=== PATIENT | male | born 1965 | race Caucasian/White ===

== ENCOUNTER → 2018-01-31 | Outpatient (CLI) | payer OTHER ==
[2018-01-31 12:51] LABS: BASO % 0.4 %; BASO ABS # 0.02 K/uL (0-0.2); EOS % 1.6 %; EOS ABS # 0.09 K/uL (0-0.5); HEMATOCRIT 44.3 % (42-52); HEMOGLOBIN 15.3 g/dL (14.0-18.0); IG# 0.01 K/uL (0.00-0.02); LYMPH ABS # 1.46 K/uL (1.2-3.4); MEAN CELL VOLUME 94.7 fL (80-100); MEAN CORPUSCULAR HEMOGLOBIN 32.7 pg (25-34); MEAN CORPUSCULAR HGB CONC 34.5 g/dl (32-36); MONO % 6.8 %; MONO ABS # 0.38 K/uL (0.11-0.59); NEUT ABS # 3.66 K/uL (1.4-6.5); PLATELET COUNT 192 K/uL (130-400); RED CELL DISTRIBUTION WIDTH CV 12.8 % (11.5-14.5); RED CELL DISTRIBUTION WIDTH SD 44.1 fL (36.4-46.3); WHITE BLOOD COUNT 5.62 K/uL (4.8-10.8)
[2018-01-31 13:09] LABS: ALBUMIN 3.8 gm/dl (3.4-5.0); ALT/SGPT 19 U/L (12-78); AST/SGOT 9 U/L (15-37); BLOOD UREA NITROGEN 8 mg/dl (7-18); CALCIUM 9.4 mg/dl (8.5-10.1); CARBON DIOXIDE 28 mmol/L (21-32); CHOLESTEROL 181 mg/dl (0-200); CREATININE 0.73 mg/dl (0.60-1.40); GLUCOSE 101 mg/dl (70-99); POTASSIUM 3.9 mmol/L (3.5-5.1); SODIUM 139 mmol/L (136-145)
[2018-01-31 13:19] LABS: ALKALINE PHOSPHATASE 172 U/L (45-117); LDL CHOLESTEROL CALCULATED 94 mg/dl; TOTAL PROTEIN 7.2 gm/dl (6.4-8.2)
== END | disposition home or self-care (01) ==
LOC: C.LABBFT 10:14
PROVIDERS: ATTEND Internal Medicine
DX: E78.5 Hyperlipidemia, unspecified (principal); F79 Unspecified intellectual disabilities; E55.9 Vitamin D deficiency, unspecified; Z12.5 Encounter for screening for malignant neoplasm of prostate

== ENCOUNTER → 2018-06-06 | Outpatient (CLI) | payer OTHER ==
[2018-06-07 06:29] LABS: HEMOGLOBIN A1C 5.5 % (4.5-5.6)
== END | disposition home or self-care (01) ==
LOC: C.LABBFT 12:16
PROVIDERS: ATTEND Internal Medicine
DX: E55.9 Vitamin D deficiency, unspecified (principal); R73.09 Other abnormal glucose

== ENCOUNTER 2022-09-18 11:14 | Inpatient (IN) ==
[2022-09-18] MEDS ORDERED: SODIUM CHLORIDE 0.9% 1000ML 1,000 ML IV ONE (11:21)
--- NOTE | 2022-09-18 11:42 | Emergency Department Note ---
Impression & Plan Sepsis, UTI (urinary tract infection), Elevated lactic acid level, Leukocytosis ED Provider Note NAME: MOR HAM AGE: 57 SEX: M ARRIVES VIA: Ambulance INFORMANT: Patient ED PROVIDER(S): Royal Brown MD CHIEF COMPLAINT: Dried blood on bedsheet, ?UTI. PLAN: Disposition: Admit MEDICAL DECISION MAKING: The patient is a pleasant 57-year-old gentleman with a past medical history of intellectual delay, hyperlipidemia who presents to the emergency department via EMS and then accompanied by family for evaluation of dried blood that they discovered on the sheets this morning where they did report he had moved his bowels as well and this is brown. They do report that this morning his urine did smell foul and wonder if he has a UTI. Otherwise, prior to today he has been in his normal state of health and they deny additional concerns On arrival the patient is no acute distress, afebrile with blood pressure 80s/60s and heart in the 100s and vital signs otherwise stable. Patient's abdomen is benign. He does have mildly irritated external hemorrhoid that is nonthrombosed and no active bleeding. Per RN upon performing rectal temperature there was no melena or gross blood obtained. EKG without overt acute ischemia. Chest x-ray without overt cardiopulmonary process and most likely atelectasis. WBC 14.8K with neutrophil predominance and left shift. H/H and platelets within normal limits. Chemistry without metabolic acidosis though lactic acid initially 4.5. Total bilirubin 1.5, nonspecific and alk phos only 160. AST is 65, nonspecific and ALT within normal limits. Lipase is not elevated. Electrolytes without significant abnormality. Procalcitonin is 140 consistent with suspicion for sepsis. UA is suspicious for infection with 3+ bacteria. COVID-19, influenza and RSV PCR's were negative. CT of the abdomen pelvis de monstrates evidence consistent with cystitis without CT evidence of upper involvement. The patient was initially treated with 30 cc/kg IV fluid hydration given suspicion of sepsis as well as empiric ceftriaxone. Zosyn was added additionally given elevated lactic acid and procalcitonin. Following IV fluid hydration the patient's blood pressures did remain stable with maps 65-75. However, Levophed was ordered to the bedside out of caution should his MAPs drift down. Case was discussed with Dr. Sutton, [facility] hospitalist, who will evaluate the patient for admission. Triage Nursing notes reviewed and agree them. Prior medical records reviewed Vital Signs: reviewed and remarkable for tachycardia, hypotnesion. Differential diagnosis: Diverticulosis, AVM, coagulopathy, colitis, inflammatory bowel disease, malign alcides, Keli-Hines tear, esophagitis, peptic ulcer disease, variceal bleed, gastritis, epistaxis, fissure, hemorrhoids, as well as other pathologies. ER treatment provided: See below. Diagnostics interpreted by me: ECG: Sinus tachycardia, 120 bpm, no ectopy, no overt ST elevation or depression, QTC 452, QRS 92. Cardiac Monitoring: An order for continuous cardiac monitoring was placed and demonstrated sinus tachycardia, 120 bpm, no ectopy. Laboratory studies: See below Imaging studies: See below Consultation(s): Case was discussed with Dr. Sutton, [facility] hospitalist, who will evaluate the patient for admission. HPI: The patient is a pleasant 57-year-old gentleman with a past medical history of intellectual delay, hyperlipidemia who presents to the emergency department via EMS and then accompanied by family for evaluation of dried blood that they discovered on the sheets this morning where they did report he had moved his bowels as well and this is brown. Prior to today he has been in his normal state of health and denies any concerns particularly. They do report that this morning his urine did smell foul and wonder if he has a UTI. ROS: See above HPI for pertinent positives & negatives. A total of 10 systems reviewed and were otherwise negative. VITALS:See Below PHYSICAL EXAMINATION: GENERAL: Awake, alert, fatigued-appearing, in no distress HENT: Normocephalic, atraumatic. Oropharynx with dry mucous membranes and otherwise unremarkable. EYES: Normal conjunctiva. Sclera non-icteric. NECK: Supple. No nuchal rigidity. FROM. No JVD. RESPIRATORY: Clear to auscultation. CARDIAC: Tachycardic rate, normal rhythm. Extremities warm and well perfused. Pulses equal. ABDOMEN: Soft, non-distended. No tenderness to palpation. No rebound or guarding. No masses. RECTAL: Mildly irritated external hemorrhoid that is nonthrombosed and no active bleeding. Per RN upon performing rectal temperature there was no melena or gross blood obtained. MUSCULOSKELETAL: Chest examination reveals no tenderness. The back is symmetrical on inspection without obvious abnormality. There is no CVA tenderness to palpation. No joint edema. LOWER EXTREMITIES: Calves are equal size bilaterally and non-tender. No edema. No discoloration. NEURO: No focal sensory or motor deficits noted. Nonverbal at patient's base line the setting of developmental delay. Moving all extremities equally. SKIN: No rash or jaundice noted. ED COURSE: Critical Care: I have personally spent greater than 75 minutes of critical care time in the direct management of this patient. This includes bedside care, interpretation of diagnostic studies, and testing, discussion with consultants, patient, and family members, and other required patient management activities. This 75 minutes is in excess of all separately billable procedures. Royal Brown MD Past Med/Surg History Medical History Cognitive developmental delay Hyperlipidemia Surgical History No pertinent past surgical history Family History Father Aneurysm Brother Colon cancer Family/Other Hypertension Aneurysm Denies family history of Prostate cancer Social History Smoking Status: Unknown if ever smoked Second Hand Exposure: No; Hx Substance Use: No Preferred Language: Polish Visual Impairment: No Limitations Hearing Ability: Normal Bilingual Account Manager Required: No Beliefs That Will Affect Care: None marital status: single Current Living Situation: Family Current Living Situation Comment: lives with mother and brothers current occupational status: unemployed Feels Safe at Home: Yes Dental Care, Regularly: No Physical Activity Frequency: Does not Exercise Assistive Devices: None Allergies Allergies Allergy/AdvReac Type Severity Reaction Status Date / Time Penicillins Allergy Rash Verified 09/18/22 14:04 Home Meds Home Medications Medication Instructions Recorded Confirmed No Known Home Medications 09/18/22 09/18/22 Results & Data (ED) Vital Signs Vital Signs - 24 hr 09/18/22 11:39 09/18/22 11:39 09/18/22 11:39 Temperature 38.6 C H 38.6 C H Temperature Source Rectal Oral Pulse Rate 117 H 117 H Pulse Rate [Apical] 116 H Pulse Rate from SpO2 Sensor Respiratory Rate 19 19 19 Respiratory Depth Normal Respiratory Pattern Regular Blood Pressure 84/50 L Blood Pressure [Left Arm] 84/50 L Blood Pressure Mean 61 Blood Pressure Mean [Left Arm] 61 Pulse Oximetry 99 99 99 Oxygen Delivery Method Room Air Room Air Room Air Sepsis Recent Fever Within 48 Hours Yes Sepsis New/Unexplained Change in Mental Status No Sepsis Action Taken by Nursing Physician Notified 09/18/22 13:01 09/18/22 11:32 09/18/22 11:40 Temperature Temperature Source Pulse Rate 117 H 113 H Pulse Rate [Apical] 114 H Pulse Rate from SpO2 Sensor Respiratory Rate 18 20 18 Respiratory Depth Respiratory Pattern Blood Pressure Blood Pressure [Left Arm] 111/71 Blood Pressure Mean Blood Pressure Mean [Left Arm] 84 Pulse Oximetry 94 Oxygen Delivery Method Sepsis Recent Fever Within 48 Hours Sepsis New/Unexplained Change in Mental Status Sepsis Action Taken by Nursing 09/18/22 11:50 09/18/22 12:00 09/18/22 12:00 Temperature Temperature Source Pulse Rate 116 H 119 H Pulse Rate [Apical] Pulse Rate from SpO2 Sensor Respiratory Rate 21 21 Respiratory Depth Respiratory Pattern Blood Pressure 115/55 L Blood Pressure [Left Arm] Blood Pressure Mean 75 Blood Pressure Mean [Left Arm] Pulse Oximetry Oxygen Delivery Method Sepsis Recent Fever Within 48 Hours Sepsis New/Unexplained Change in Mental Status Sepsis Action Taken by Nursing 09/18/22 12:10 09/18/22 12:20 09/18/22 12:30 Temperature Temperature Source Pulse Rate 117 H 122 H 117 H Pulse Rate [Apical] Pulse Rate from SpO2 Sensor Respiratory Rate 18 18 20 Respiratory Depth Respiratory Pattern Blood Pressure Blood Pressure [Left Arm] Blood Pressure Mean Blood Pressure Mean [Left Arm] Pulse Oximetry Oxygen Delivery Method Sepsis Recent Fever Within 48 Hours Sepsis New/Unexplained Change in Mental Status Sepsis Action Taken by Nursing 09/18/22 12:40 09/18/22 12:50 09/18/22 13:00 Temperature Temperature Source Pulse Rate 113 H 113 H Pulse Rate [Apical] Pulse Rate from SpO2 Sensor 113 H 113 H Respiratory Rate 20 17 Respiratory Depth Respiratory Pattern Blood Pressure 111/71 Blood Pressure [Left Arm] Blood Pressure Mean 84 Blood Pressure Mean [Left Arm] Pulse Oximetry 95 93 Oxygen Delivery Method Sepsis Recent Fever Within 48 Hours Sepsis New/Unexplained Change in Mental Status Sepsis Action Taken by Nursing 09/18/22 13:00 09/18/22 13:28 09/18/22 13:28 Temperature Temperature Source Pulse Rate 112 H Pulse Rate [Apical] Pulse Rate from SpO2 Sensor 115 H 114 H Respiratory Rate 21 Respiratory Depth Respiratory Pattern Blood Pressure 91/60 L Blood Pressure [Left Arm] Blood Pressure Mean 70 Blood Pressure Mean [Left Arm] Pulse Oximetry 91 92 Oxygen Delivery Method Sepsis Recent Fever Within 48 Hours Sepsis New/Unexplained Change in Mental Status Sepsis Action Taken by Nursing 09/18/22 13:30 09/18/22 13:40 09/18/22 13:49 Temperature Temperature Source Pulse Rate 114 H 113 H 114 H Pulse Rate [Apical] Pulse Rate from SpO2 Sensor 114 H 113 H 114 H Respiratory Rate 14 14 16 Respiratory Depth Respiratory Pattern Blood Pressure Blood Pressure [Left Arm] Blood Pressure Mean Blood Pressure Mean [Left Arm] Pulse Oximetry 90 85 L 93 Oxygen Delivery Method Sepsis Recent Fever Within 48 Hours Sepsis New/Unexplained Change in Mental Status Sepsis Action Taken by Nursing 09/18/22 13:49 09/18/22 13:50 Temperature Temperature Source Pulse Rate 113 H Pulse Rate [Apical] Pulse Rate from SpO2 Sensor 113 H Respiratory Rate 18 Respiratory Depth Respiratory Pattern Blood Pressure 85/62 L Blood Pressure [Left Arm] Blood Pressure Mean 69 Blood Pressure Mean [Left Arm] Pulse Oximetry 92 Oxygen Delivery Method Sepsis Recent Fever Within 48 Hours Sepsis New/Unexplained Change in Mental Status Sepsis Action Taken by Nursing Laboratory Data Attestation: I reviewed the patient's lab results. Result diagrams: 09/18/22 11:34 09/18/22 12:40 Lab Results 09/18/22 09/18/22 09/18/22 Range/Units 11:34 11:34 11:34 WBC 14.89 H (4.8-10.8) K/ul RBC 4.28 L (4.63-6.08) M/uL Hgb 14.2 (14.0-18.0) g/dl Hct 42.2 (40.1-51.0) % MCV 98.6 (80.0-100.0) fL MCH 33.2 (25.0-34.0) pg MCHC 33.6 (32.0-36.0) g/dL RDW Std Deviation 44.0 (36.4-46.3) fL RDW Coeff of Francisco 12.2 (11.5-14.5) % Plt Count 148 (130-400) K/uL MPV 10.2 (9.4-12.4) fL Immature Gran % (Auto) 1.1 % Neut % (Auto) 95.3 % Lymph % (Auto) 1.1 % Stark % (Auto) 2.1 % Eos % (Auto) 0.1 % Baso % (Auto) 0.3 % Neut # (Auto) 14.19 H (1.4-6.5) K/uL Lymph # (Auto) 0.17 L (1.2-3.4) K/uL Stark # (Auto) 0.32 (0.24-0.82) K/uL Eos # (Auto) 0.01 (0-0.50) K/uL Baso # (Auto) 0.04 (0-0.2) K/uL Immature Gran # (Auto) 0.16 H (0.00-0.02) K/uL Toxic Vacuolation 1+ PT (9.0-12.0) Seconds INR (0.9-1.1) Sodium 141 (136-145) mmol/L Potassium TNP Chloride 107 (98-107) mmol/L Carbon Dioxide 26 (21-32) mmol/L Anion Gap 8 (3-11) BUN 18 (6-23) mg/dl Creatinine 1.32 (0.6-1.4) mg/dl Est Cr Clr Drug Dosing 62.2 ml/min Est GFR ( Amer) 68.0 ml/min Est GFR (Non-Af Amer) 58.6 ml/min BUN/Creatinine Ratio 13.6 (10-20) Glucose 194 H (70-99(Fasting)) mg/dl Estimat Average Glucose mg/dl Hemoglobin A1c (4.5-5.6) % Lactate (0.4-2.0) mmol/L Calcium 9.1 (8.5-10.1) mg/dl Total Bilirubin 1.5 H (0.2-1.0) mg/dl AST TNP ALT 49 (7-52) U/L Alkaline Phosphatase 161 H (34-104) U/L Total Protein 6.1 (6.0-8.3) gm/dl Albumin 3.6 (3.4-5.0) gm/dl Globulin 2.5 (2.5-4.0) gm/dl Albumin/Globulin Ratio 1.4 (0.9-2) Lipase 15 (11-82) U/L Procalcitonin (0-0.5) ng/ml Urine Color Yellow Urine Appearance Cloudy A (Clear) Urine pH 5.5 (4.5-7.5) Ur Specific [place] 1.012 (1.000-1.030) Urine Protein Negative (Negative) Urine Glucose (UA) Negative (Negative) Urine Ketones Negative (Negative) Urine Blood 2+ H (Negative) Urine Nitrite Negative (Negative) Urine Bilirubin Negative (Negative) Urine Urobilinogen Negative (Negative) Ur Leukocyte Esterase 1+ H (Negative) Urine WBC (Auto) 1-5 (0-5) /hpf Urine RBC (Auto) 10-30 H (0-4) /hpf U Hyaline Cast (Auto) 1-5 (0-5) /lpf U Epithel Cells (Auto) 10-20 H (0-5) /lpf Urine Bacteria (Auto) 3+ H (Negative) SARS-CoV-2 (PCR) (Negative) Influenza Type A (PCR) (Neg) Influenza Type B (PCR) (Neg) RSV (RT-PCR) (Neg) 09/18/22 09/18/22 09/18/22 Range/Units 11:34 12:40 12:40 WBC (4.8-10.8) K/ul RBC (4.63-6.08) M/uL Hgb (14.0-18.0) g/dl Hct (40.1-51.0) % MCV (80.0-100.0) fL MCH (25.0-34.0) pg MCHC (32.0-36.0) g/dL RDW Std Deviation (36.4-46.3) fL RDW Coeff of Francisco (11.5-14.5) % Plt Count (130-400) K/uL MPV (9.4-12.4) fL Immature Gran % (Auto) % Neut % (Auto) % Lymph % (Auto) % Stark % (Auto) % Eos % (Auto) % Baso % (Auto) % Neut # (Auto) (1.4-6.5) K/uL Lymph # (Auto) (1.2-3.4) K/uL Stark # (Auto) (0.24-0.82) K/uL Eos # (Auto) (0-0.50) K/uL Baso # (Auto) (0-0.2) K/uL Immature Gran # (Auto) (0.00-0.02) K/uL Toxic Vacuolation PT 11.5 (9.0-12.0) Seconds INR 1.1 (0.9-1.1) Sodium (136-145) mmol/L Potassium Chloride (98-107) mmol/L Carbon Dioxide (21-32) mmol/L Anion Gap (3-11) BUN (6-23) mg/dl Creatinine (0.6-1.4) mg/dl Est Cr Clr Drug Dosing ml/min Est GFR ( Amer) ml/min Est GFR (Non-Af Amer) ml/min BUN/Creatinine Ratio (10-20) Glucose (70-99(Fasting)) mg/dl Estimat Average Glucose 128 mg/dl Hemoglobin A1c 6.1 H (4.5-5.6) % Lactate (0.4-2.0) mmol/L Calcium (8.5-10.1) mg/dl Total Bilirubin (0.2-1.0) mg/dl AST ALT (7-52) U/L Alkaline Phosphatase (34-104) U/L Total Protein (6.0-8.3) gm/dl Albumin (3.4-5.0) gm/dl Globulin (2.5-4.0) gm/dl Albumin/Globulin Ratio (0.9-2) Lipase (11-82) U/L Procalcitonin 140.53 H (0-0.5) ng/ml Urine Color Urine Appearance (Clear) Urine pH (4.5-7.5) Ur Specific [place] (1.000-1.030) Urine Protein (Negative) Urine Glucose (UA) (Negative) Urine Ketones (Negative) Urine Blood (Negative) Urine Nitrite (Negative) Urine Bilirubin (Negative) Urine Urobilinogen (Negative) Ur Leukocyte Esterase (Negative) Urine WBC (Auto) (0-5) /hpf Urine RBC (Auto) (0-4) /hpf U Hyaline Cast (Auto) (0-5) /lpf U Epithel Cells (Auto) (0-5) /lpf Urine Bacteria (Auto) (Negative) SARS-CoV-2 (PCR) (Negative) Influenza Type A (PCR) (Neg) Influenza Type B (PCR) (Neg) RSV (RT-PCR) (Neg) 09/18/22 09/18/22 09/18/22 Range/Units 12:40 12:40 12:51 WBC (4.8-10.8) K/ul RBC (4.63-6.08) M/uL Hgb (14.0-18.0) g/dl Hct (40.1-51.0) % MCV (80.0-100.0) fL MCH (25.0-34.0) pg MCHC (32.0-36.0) g/dL RDW Std Deviation (36.4-46.3) fL RDW Coeff of Francisco (11.5-14.5) % Plt Count (130-400) K/uL MPV (9.4-12.4) fL Immature Gran % (Auto) % Neut % (Auto) % Lymph % (Auto) % Stark % (Auto) % Eos % (Auto) % Baso % (Auto) % Neut # (Auto) (1.4-6.5) K/uL Lymph # (Auto) (1.2-3.4) K/uL Stark # (Auto) (0.24-0.82) K/uL Eos # (Auto) (0-0.50) K/uL Baso # (Auto) (0-0.2) K/uL Immature Gran # (Auto) (0.00-0.02) K/uL Toxic Vacuolation PT (9.0-12.0) Seconds INR (0.9-1.1) Sodium (136-145) mmol/L Potassium 4.0 Chloride (98-107) mmol/L Carbon Dioxide (21-32) mmol/L Anion Gap (3-11) BUN (6-23) mg/dl Creatinine (0.6-1.4) mg/dl Est Cr Clr Drug Dosing ml/min Est GFR ( Amer) ml/min Est GFR (Non-Af Amer) ml/min BUN/Creatinine Ratio (10-20) Glucose (70-99(Fasting)) mg/dl Estimat Average Glucose mg/dl Hemoglobin A1c (4.5-5.6) % Lactate 4.5 H* (0.4-2.0) mmol/L Calcium (8.5-10.1) mg/dl Total Bilirubin (0.2-1.0) mg/dl AST 65 H ALT (7-52) U/L Alkaline Phosphatase (34-104) U/L Total Protein (6.0-8.3) gm/dl Albumin (3.4-5.0) gm/dl Globulin (2.5-4.0) gm/dl Albumin/Globulin Ratio (0.9-2) Lipase (11-82) U/L Procalcitonin (0-0.5) ng/ml Urine Color Urine Appearance (Clear) Urine pH (4.5-7.5) Ur Specific [place] (1.000-1.030) Urine Protein (Negative) Urine Glucose (UA) (Negative) Urine Ketones (Negative) Urine Blood (Negative) Urine Nitrite (Negative) Urine Bilirubin (Negative) Urine Urobilinogen (Negative) Ur Leukocyte Esterase (Negative) Urine WBC (Auto) (0-5) /hpf Urine RBC (Auto) (0-4) /hpf U Hyaline Cast (Auto) (0-5) /lpf U Epithel Cells (Auto) (0-5) /lpf Urine Bacteria (Auto) (Negative) SARS-CoV-2 (PCR) NEGATIVE (Negative) Influenza Type A (PCR) Negative (Neg) Influenza Type B (PCR) Negative (Neg) RSV (RT-PCR) Negative (Neg) Administered Medications Heparin Sodium (Porcine) (Heparin Sod 5,000 Unit/0.5 Ml Vial) 5,000 units SQ Q12 [facility] Stop: 10/18/22 20:59 Last Admin: 09/18/22 20:40 Dose: 5,000 units Documented By: ISAAC Cefepime HCl 2,000 mg/ Syringe 20 mls @ 5 mls/min IV Q8H [facility]; Protocol Stop: 09/20/22 22:59 Last Admin: 09/18/22 23:52 Dose: 5 mls/min Documented By: ISAAC Potassium Chloride/Sodium Chloride (Normal Saline W/20 Meq Kcl) 20 meq in 1,000 mls @ 120 mls/hr IV .Q8H20M [facility] Stop: 10/18/22 16:27 Last Infusion: 09/18/22 23:00 Dose: 120 mls/hr Documented By: Infusion: 09/18/22 22:00 Dose: 0 mls/hr Documented By: Admin: 09/18/22 17:26 Dose: 120 mls/hr Documented By: IFRAH Insulin Aspart (Insulin Aspart Per Unit) 0 units SC ACHS RAZ Stop: 10/18/22 16:29 Last Admin: 09/18/22 20:44 Dose: 2 units Documented By: ISAAC Co-signed By: NORRIS Admin: 09/18/22 17:40 Dose: Not Given Documented By: IFRAH Discontinued Medications Sodium Chloride (Nss 1000ml) 1,000 mls @ 999 mls/hr IV .Q1H1M ONE Stop: 09/18/22 12:21 Last Admin: 09/18/22 12:38 Dose: Not Given Documented By: TONE Sodium Chloride (Nss 1000ml) 500 mls @ 999 mls/hr IV .Q31M RAZ Stop: 09/18/22 13:00 Last Infusion: 09/18/22 13:09 Dose: 0 mls/hr Documented By: Admin: 09/18/22 12:28 Dose: 999 mls/hr Documented By: TONE Sodium Chloride (Nss 1000ml) 1,000 mls @ 999 mls/hr IV .Q1H1M RAZ Stop: 09/18/22 14:30 Last Infusion: 09/18/22 16:34 Dose: 0 mls/hr Documented By: Admin: 09/18/22 14:26 Dose: 999 mls/hr Documented By: Infusion: 09/18/22 13:33 Dose: 0 mls/hr Documented By: Admin: 09/18/22 12:28 Dose: 999 mls/hr Documented By: TONE Acetaminophen (Ofirmev) 1,000 mg in 100 mls @ 400 mls/hr IV NOW STA Stop: 09/18/22 12:33 Last Infusion: 09/18/22 12:51 Dose: 0 mls/hr Documented By: Admin: 09/18/22 12:28 Dose: 400 mls/hr Documented By: KT Ceftriaxone Sodium (Rocephin) 2,000 mg in 70 mls @ 140 mls/hr IV NOW STA Stop: 09/18/22 12:48 Last Infusion: 09/18/22 13:08 Dose: 0 mls/hr Documented By: Admin: 09/18/22 12:37 Dose: 140 mls/hr Documented By: KT Piperacillin Sod/Tazobactam Sod (Zosyn) 4.5 gm in 120 mls @ 240 mls/hr IV NOW ONE Stop: 09/18/22 14:13 Last Admin: 09/18/22 16:33 Dose: Not Given Documented By: IFRAH Norepinephrine Bitartrate (Levophed/D5w) 4 mg in 250 mls @ 15.375 mls/hr IV .[id number] RAZ; Protocol Stop: 10/18/22 13:59 Last Admin: 09/18/22 16:32 Dose: Not Given Documented By: IFRAH Metronidazole (Flagyl) 500 mg in 100 mls @ 100 mls/hr IV Q8H RAZ Stop: 09/20/22 14:14 Last Admin: 09/18/22 16:34 Dose: Not Given Documented By: IFRAH Cefepime HCl 2,000 mg/ Syringe 20 mls @ 5 mls/min IV 1500 ONE; Protocol Stop: 09/18/22 15:03 Last Admin: 09/18/22 14:48 Dose: 5 mls/min Documented By: TONE Metronidazole (Flagyl) 500 mg in 100 mls @ 100 mls/hr IV 1500 ONE Stop: 09/18/22 15:59 Last Infusion: 09/18/22 15:43 Dose: 0 mls/hr Documented By: Admin: 09/18/22 14:47 Dose: 100 mls/hr Documented By: TONE Lactated Ringer's (Lr) 1,000 mls @ 999 mls/hr IV .Q1H1M ONE Stop: 09/18/22 22:46 Last Infusion: 09/18/22 23:10 Dose: 0 mls/hr Documented By: Admin: 09/18/22 21:58 Dose: 999 mls/hr Documented By: ISAAC Ioversol (Optiray 350 100ml) 88 ml IV ONCE ONE Stop: 09/18/22 13:19 Last Admin: 09/18/22 13:19 Dose: 88 ml Documented By: RODRIGUEZ Lidocaine HCl (Lidocaine 2% Jelly 5 Ml Tube) Confirm Administered Dose 5 ml EXT .STK-MED ONE Stop: 09/18/22 15:49 Last Admin: 09/18/22 16:35 Dose: 5 ml Documented By: IFRAH Miscellaneous (Stat Iv Infusion Titration Per Protocol) 1 each N/A NOW STA; Protocol Stop: 09/18/22 13:53 Last Admin: 09/18/22 16:31 Dose: Not Given Documented By: LDS Imaging Data Radiologist's Impression: Abdomen/Pelvis CT 09/18/22 12:16 CT abd pelvis IV con only CLINICAL HISTORY: uti, hematuria TECHNIQUE: Helical axial images of the abdomen and pelvis were obtained and displayed. Automated dose lowering techniques and/or adjustment according to patient size were utilized for this exam. This exam was performed with intravenous contrast. CT DOSE: 1134.16 mGycm COMPARISON: FINDINGS: Lower chest: Bibasilar atelectasis versus scarring is seen. Liver: Unremarkable. No focal lesions are seen. Gallbladder and biliary tree: Cholelithiasis is seen without evidence of cholecystitis. No intra- or extrahepatic biliary ductal dilation. Pancreas: Fatty replacement of the pancreas is seen. Spleen: Unremarkable. Adrenals: Unremarkable. Kidneys and ureters: Perinephric stranding is noted bilaterally. No evidence of pyelonephritis. No hydronephrosis is seen. Bladder: Diffuse homogeneous wall thickening is seen. Reproductive organs: Prostatomegaly is seen. Bowel: Unremarkable appearance of the bowel. The appendix is normal. Lymph nodes Retroperitoneal: Subcentimeter lymph nodes are noted. Pelvic: Unremarkable. Mesenteric: Unremarkable. Peritoneum: Normal. Vessels: Unremarkable. Abdominal wall: Unremarkable. Bones: Degenerative changes in the visualized spine. IMPRESSION: Thickening of the bladder wall is seen compatible with history of UTI. No CT evidence of pyelonephritis. No urothelial mass is seen. ACT 112: Negative or not required by law. Electronically signed by: Eleazar Barrera M.D. 09/18/2022 1:36 PM Chest X-Ray 09/18/22 13:40 XR chest 1V portable HISTORY: fever COMPARISON: Abdomen and pelvis CT 09/18/2022. FINDINGS: Bibasilar linear densities consistent with subsegmental atelectasis. No pneumothorax. No pleural effusion is. There are low lung volumes. The cardiac silhouette is top normal in size. No evidence for pulmonary edema. Questionable small focal density within the periphery the right midlung zone is likely due to the overlapping rib/scapula. IMPRESSION: Low lung volumes with bibasilar linear densities likely representing subsegmental atelectasis. ACT 112: Negative or not required by law. Electronically signed by: Eliseo Steele M.D. 09/18/2022 2:21 PM Discharge Plan Visit Data Chief Complaint: Abdominal Pain Stated Complaint: AB PAIN, RECTAL BLEED ED Provider: Royal Brown Discharge Problem: Sepsis, UTI (urinary tract infection), Elevated lactic acid level, Leukocytosis Patient Disposition: Admitted As Inpatient Discharge Instructions Interventions: ED Discharge Assessment Last Done: 09/18/22 16:02
[2022-09-18 11:55] LABS: Hematocrit (blood only) 42.2 % (40.1-51.0); Hemoglobin 14.2 g/dl (14.0-18.0); Mean Corpuscular Hemoglobin 33.2 pg (25.0-34.0); Mean Corpuscular Hgb Conc 33.6 g/dL (32.0-36.0); Mean Corpuscular Volume 98.6 fL (80.0-100.0); Mean Platelet Volume 10.2 fL (9.4-12.4); Platelet Count 148 K/uL (130-400); RDW Coefficient of Variation 12.2 % (11.5-14.5); Red Blood Count 4.28 M/uL (4.63-6.08); White Blood Count 14.89 K/ul (4.8-10.8)
[2022-09-18 12:12] LABS: Appearance Urine Cloudy (Clear); Bacteria Urine Automated 3+ (Negative); Bilirubin Urine Negative (Negative); Blood Urine 2+ (Negative); Color Urine Yellow; Glucose Urine UA Negative (Negative); Ketones Urine Negative (Negative); Leukocyte Esterase Urine 1+ (Negative); Nitrite Urine Negative (Negative); Protein Urine Negative (Negative); Specific Gravity Urine 1.012 (1.000-1.030); Urobilinogen Urine Negative (Negative); pH Urine 5.5 (4.5-7.5)
[2022-09-18 12:14] LABS: Basophils # (auto) 0.04 K/uL (0-0.2); Basophils % (auto) 0.3 %; Eosinophils # (auto) 0.01 K/uL (0-0.50); Eosinophils % (auto) 0.1 %; Immature Granulocytes # (auto) 0.16 K/uL (0.00-0.02); Immature Granulocytes % (auto) 1.1 %; Lymphocytes # (auto) 0.17 K/uL (1.2-3.4); Lymphocytes % (auto) 1.1 %; Monocytes # (auto) 0.32 K/uL (0.24-0.82); Monocytes % (auto) 2.1 %; Neutrophils # (auto) 14.19 K/uL (1.4-6.5); Neutrophils % (auto) 95.3 %; Toxic Vacuolation 1+
[2022-09-18] MEDS ORDERED: cefTRIAXone SODIUM 2,000 MG/70 ML BAG IV STA (12:19)
[2022-09-18] MEDS ORDERED: ACETAMINOPHEN 1,000 MG/100 ML VIAL IV STA (12:19)
[2022-09-18 12:25] LABS: Alanine Aminotransferase 49 U/L (7-52); Albumin Globulin Ratio 1.4 (0.9-2); Albumin Level 3.6 gm/dl (3.4-5.0); Alkaline Phosphatase 161 U/L (34-104); Anion Gap 8 (3-11); BUN Creatinine Ratio 13.6 (10-20); Bilirubin,Total 1.5 mg/dl (0.2-1.0); Blood Urea Nitrogen 18 mg/dl (6-23); Calcium 9.1 mg/dl (8.5-10.1); Carbon Dioxide 26 mmol/L (21-32); Chloride 107 mmol/L (98-107); Creatinine Clr Calc Pharmacy 62.2 ml/min; Est GFR (Non-African American) 58.6 ml/min; Globulin 2.5 gm/dl (2.5-4.0); Glucose 194 mg/dl (70-99(Fasting)); Lipase 15 U/L (11-82); Sodium 141 mmol/L (136-145); Total Protein 6.1 gm/dl (6.0-8.3)
[2022-09-18] MEDS: SODIUM CHLORIDE 0.9% 1000ML 1,000 ML IV SCH ×2 (12:28→14:26)
[2022-09-18] MEDS ORDERED: SODIUM CHLORIDE 0.9% 1000ML 500 ML IV SCH (12:30)
[2022-09-18 13:10] LABS: INR 1.1 (0.9-1.1); Prothrombin Time 11.5 Seconds (9.0-12.0)
[2022-09-18] MEDS ORDERED: OPTIRAY 350 100ml IV ONE (13:18)
--- NOTE | 2022-09-18 13:37 | CT Scan Report ---
CT abd pelvis IV con only CLINICAL HISTORY: uti, hematuria TECHNIQUE: Helical axial images of the abdomen and pelvis were obtained and displayed. Automated dose lowering techniques and/or adjustment according to patient size were utilized for this exam. This e xam was performed with intravenous contrast. CT DOSE: 1134.16 mGycm COMPARISON: FINDINGS: Lower chest: Bibasilar atelectasis versus scarring is seen. Liver: Unremarkable. No focal lesions are seen. Gallbladder and biliary tree: Cholelithiasis is seen without evidence of cholecystitis. No intra- or extrahepatic biliary ductal dilation. Pancreas: Fatty replacement of the pancreas is seen. Spleen: Unremarkable. Adrenals: Unremarkable. Kidneys and ureters: Perinephric stranding is noted bilaterally. No evidence of pyelonephritis. No hy dronephrosis is seen. Bladder: Diffuse homogeneous wall thickening is seen. Reproductive organs: Prostatomegaly is seen. Bowel: Unremarkable appearance of the bowel. The appendix is normal. Lymph nodes Retroperitoneal: Subcentimeter lymph nodes are noted. Pelvic: Unremarkable. Mesenteric: Unremarkable. Peritoneum: Normal. Vessels: Unremarkable. Abdominal wall: Unremarkable. Bones: Degenerative changes in the visualized spine. IMPRESSION: Thickening of the bladder wall is seen compatible with history of UTI. No CT evidence of pyelonephrit is. No urothelial mass is seen. ACT 112: Negative or not required by law. Electronically signed by: Eleazar Barrera M.D. 09/18/2022 1:36 PM
[2022-09-18] MEDS ORDERED: PIPERACILLIN/TAZOBACTAM 4.5 GM/120 ML BAG IV ONE (13:44)
[2022-09-18] MEDS ORDERED: STAT IV Infusion **Titration per Protocol STA (13:52)
--- NOTE | 2022-09-18 13:56 | History & Physical Report ---
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 PCN allergy. I nitially with one dose of flagyl to cover anaerobe ?aspiration, CXR normal without hypoxia, discontinued 2/2 suspected urinary source Initially ordered norepinephrine for MAP less than 65, MAP improved and sustained greater than 70 with fluids and antibiotics. Norepinephrine deferred, PCU status. If pressures drop with MAP below 65 we will reorder and would require ICU admission Bilirubin elevated, AST 65, ALT 49? In setting of hypertension. Trended - CXR: Low lung volumes with bibasilar linear densities likely representing subsegmental atelectasis. 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 He lives at home with caregivers who also have cameras in the home to help monitor activity. Reportedly was in his usual state of health until 1 week ago when he developed increased urinary frequency, but did not express or indicate pain. He had been taking Azo and cranberry extract over the last week. Last night he was up at 3 AM to urinate and went to bed, his brother then found him around 8 in the following morning in bed with a small amount of blood on the sheet suspected of urinary origin, more sedated, and fatigued and was brought to the ER for evaluation. On ER evaluation he met sepsis criteria due to tachycardia, hypotension, leukocytosis with left shift and elevated lactate/PCT with normal bicarb. Patient did receive empiric ceftriaxone which was expanded to cefepime due to severity of illness. Patient was originally ordered Zosyn, this was not given as and discussed with patient's family he had had reactions and allergy to penicillin which I think involved a rash but were not sure if this involved airway or lip swelling. Unclear if patient could have aspirated and anaerobe coverage was initially ordered, chest x-ray was clear and Flagyl was subsequently deferred. Patient was also initially ordered norepinephrine, however deven to systolic greater than 100 with maps above 70 with fluid and antibiotic treatment and this was deferred. History is limited at bedside due to patient's underlying nonverbal status, collateral was collected from patient's family and brother at bedside. Primary Contact is patient's brother Antony. He notes that Renate also has some congenital spine deformity with chronic back pain, but otherwise has no medical problems. No histories of falls/trauma/concussion. No daily medications. Medical History: Reviewed Medications: Reviewed Surgical History: Reviewed Allergies: Reviewed Social History: No tobacco/alcohol/substance use Code Status: Full code, discussed with family Allergies Allergy/AdvReac Type Severity Reaction Status Date / Time Penicillins Allergy Rash Verified 09/18/22 14:04 Home Medications Medication Instructions Recorded Confirmed Type azithromycin 250 mg tablet See Rx Instructions PO .COMPLEX #6 09/14/21 Rx (Zithromax) tabs benzonatate 100 mg capsule 100 mg PO TID PRN cough #30 caps 09/14/21 Rx (Tessalon Perles) Past Med/Surg History Medical History Cognitive developmental delay Hyperlipidemia Surgical History No pertinent past surgical history Family History Father Aneurysm Brother Colon cancer Family/Other Hypertension Aneurysm Denies family history of Prostate cancer Social History Smoking Status: Never smoker Second Hand Exposure: No; Hx Alcohol Use: No Hx Substance Use: No Preferred Language: Fijian Visual Impairment: No Limitations Hearing Ability: Normal marital status: single Current Living Situation: Parent and Family Current Living Situation Comment: lives with mother and brothers current occupational status: unemployed Feels Safe at Home: Yes Dental Care, Regularly: No Physical Activity Frequency: Does not Exercise Review of Systems Review of Systems: All systems reviewed & are unremarkable except as noted in HPI & below Physical Exam Physical Exam: General: Awake, nonverbal. No acute distress/nontoxic appearing. HEENT: Atraumatic, normocephalic. Mucous membranes tacky/dry. Tracks with EOMs. Pulm: CTAB A&P. -wheezes, -rales, -rhonchi. Symmetrical chest rise. No increase in work of breathing. No respiratory distress. Cardiac: Regular, tachycardic, -mrg. Radial pulses intact and symmetrical. Abdominal: Does not grimace to abdominal palpation. Soft, nondistended Extremities: Warm, dry. Strength testing limited by engagement. Cap refill 1-2 seconds in the hallux bilaterally. Results & Data Results & Data ([facility]) Vital Signs (Past 12 Hours) Vital Signs Temp Pulse Pulse Resp BP BP Pulse Ox 09/18/22 13:01 114 H 18 111/71 94 09/18/22 11:39 117 H 19 99 09/18/22 11:39 38.6 C H 116 H 19 84/50 L 99 09/18/22 11:39 38.6 C H 117 H 19 84/50 L 99 O2 Del Method 09/18/22 13:01 09/18/22 11:39 Room Air 09/18/22 11:39 Room Air 09/18/22 11:39 Room Air Code Status & VTE Plan VTE Prophylaxis Plan VTE Prophylaxis will be ordered: Yes PG Care Time/CCT Total # of Minutes Spent Total Time Spent with Patient: Total time spent is greater than 50% in coordination of care (as documented) at patient's floor/unit and/or counseling patient: Coding Level of Care Code 39959 Initial Inpt Care Lvl 3 Diagnoses Sepsis A41.9 UTI (urinary tract infection) N39.0 Impaired fasting glucose R73.01 Hyperlipidemia E78.5
[2022-09-18] MEDS ORDERED: NOREPINEPHRINE/D5W 4 MG/250 ML PLCT IV SCH (14:00)
[2022-09-18 14:09] LABS: Influenza A virus by PCR Negative (Neg); Influenza B virus by PCR Negative (Neg); RSV by PCR Negative (Neg); SARS CoV2 RNA(COVID-19)Cepheid NEGATIVE (Negative)
[2022-09-18] MEDS ORDERED: metroNIDAZOLE 500 MG/100 ML BAG IV SCH (14:15)
--- NOTE | 2022-09-18 14:23 | XRay Report ---
XR chest 1V portable HISTORY: fever COMPARISON: Abdomen and pelvis CT 09/18/2022. FINDINGS: Bibasilar linear densities consistent with subsegmental atelectasis. No pneumothorax. No pl eural effusion is. There are low lung volumes. The cardiac silhouette is top normal in size. No evide nce for pulmonary edema. Questionable small focal density within the periphery the right midlung zone is likely due to the overlapping rib/scapula. IMPRESSION: Low lung volumes with bibasilar linear densities likely representing subsegmental atelectasis. ACT 112: Negative or not required by law. Electronically signed by: Eliseo Steele M.D. 09/18/2022 2:21 PM
[2022-09-18] MEDS ORDERED: CEFEPIME 2,000 MG in SYRINGE 0 ML IV ONE (15:00)
[2022-09-18] MEDS ORDERED: metroNIDAZOLE 500 MG/100 ML BAG IV ONE (15:00)
[2022-09-18] MEDS ORDERED: GLUCAGON FOR INJ 1 MG VIAL SQ PRN (15:19)
[2022-09-18] MEDS ORDERED: GLUCOSE 10 TAB/TUBE PO PRN (15:19)
[2022-09-18] MEDS ORDERED: DEXTROSE 50% 50 ML SYRINGE IV PRN (15:19)
[2022-09-18] MEDS ORDERED: CARBOHYDRATES FOR HYPOGLYCEMIA PO PRN (15:19)
[2022-09-18] MEDS ORDERED: GLUCOSE 40% GEL 15 GM TUBE PO PRN (15:19)
[2022-09-18] MEDS ORDERED: LIDOCAINE 2% JELLY 5 ML TUBE EXT ONE (15:48)
[2022-09-18] MEDS ORDERED: MAGNESIUM HYDROXIDE SUSP 30 ML UDC PO PRN (16:28)
[2022-09-18] MEDS ORDERED: ONDANSETRON INJ 2 MG/ML 2 ML VIAL IV PRN (16:28)
[2022-09-18] MEDS ORDERED: POLYETHYLENE (MIRALAX) 17 GM PACK PO PRN (16:28)
[2022-09-18] MEDS ORDERED: ACETAMINOPHEN 500 MG TAB PO PRN ×2 (17:02→21:47)
[2022-09-18] MEDS: NSS + 20MEQ KCL 20 MEQ/1,000 ML BAG IV SCH (17:26)
[2022-09-18] MEDS: INSULIN ASPART PER UNIT SC SCH ×2 (17:40→20:44)
[2022-09-18 17:58] LABS: Estimated Average Glucose 128 mg/dl; Hemoglobin A1C 6.1 % (4.5-5.6)
--- NOTE | 2022-09-18 18:25 | Electrocardiogram Report ---
Test Reason : Blood Pressure : / mmHG Vent. Rate : 120 BPM Atrial Rate : 120 BPM P-R Int : 154 ms QRS Dur : 092 ms QT Int : 320 ms P-R-T Axes : 056 011 050 degrees QTc Int : 452 ms Sinus tachycardia Possible Left atrial enlargement Atypical right bundle pattern, consider Brugada Borderline ECG No previous ECGs available Confirmed by Renato Elizabeth ([id number]) on 09/18/2022 6:25:34 PM Referred By: REFERRED SELF Confirmed By:Ruben Elizabeth
[2022-09-18] MEDS: HEPARIN SOD 5,000 UNIT/0.5 ML VIAL SQ SCH (20:40)
[2022-09-18] MEDS ORDERED: LACTATED RINGER'S 1,000 ML IV ONE (21:46)
[2022-09-18] MEDS ORDERED: ACETAMINOPHEN 1,000 MG/100 ML VIAL IV PRN (21:47)
[2022-09-18] MEDS: CEFEPIME 2,000 MG in SYRINGE 0 ML IV SCH (23:52)
[2022-09-19] MEDS: NSS + 20MEQ KCL 20 MEQ/1,000 ML BAG IV SCH ×3 (03:09→20:01)
[2022-09-19 06:38] LABS: Hematocrit (blood only) 35.4 % (40.1-51.0); Hemoglobin 12.3 g/dl (14.0-18.0); Mean Corpuscular Hemoglobin 33.3 pg (25.0-34.0); Mean Corpuscular Hgb Conc 34.7 g/dL (32.0-36.0); Mean Corpuscular Volume 95.9 fL (80.0-100.0); Mean Platelet Volume 10.1 fL (9.4-12.4); Platelet Count 133 K/uL (130-400); RDW Coefficient of Variation 12.6 % (11.5-14.5); RDW Standard Deviation 44.4 fL (36.4-46.3); Red Blood Count 3.69 M/uL (4.63-6.08); White Blood Count 19.68 K/ul (4.8-10.8)
[2022-09-19 06:45] LABS: Albumin Level 3.1 gm/dl (3.4-5.0); BUN Creatinine Ratio 19.3 (10-20); Basophils # (auto) 0.04 K/uL (0-0.2); Basophils % (auto) 0.2 %; Bilirubin Direct 0.4 mg/dl (0-0.2); Bilirubin,Total 1.2 mg/dl (0.2-1.0); Calcium 7.9 mg/dl (8.5-10.1); Creatinine Clr Calc Pharmacy 93.3 ml/min; Eosinophils # (auto) 0.15 K/uL (0-0.50); Eosinophils % (auto) 0.8 %; Immature Granulocytes # (auto) 0.78 K/uL (0.00-0.02); Lymphocytes # (auto) 0.48 K/uL (1.2-3.4); Lymphocytes % (auto) 2.4 %; Monocytes # (auto) 1.12 K/uL (0.24-0.82); Monocytes % (auto) 5.7 %; Neutrophils # (auto) 17.11 K/uL (1.4-6.5); Neutrophils % (auto) 86.9 %; Potassium 4.2 mmol/L (3.5-5.1); RBC Morphology Unremarkable; Total Protein 5.2 gm/dl (6.0-8.3)
[2022-09-19] MEDS: PANTOprazole 40 MG TAB PO SCH (07:34)
[2022-09-19] MEDS: CEFEPIME 2,000 MG in SYRINGE 0 ML IV SCH ×3 (07:34→23:48)
[2022-09-19] MEDS: HEPARIN SOD 5,000 UNIT/0.5 ML VIAL SQ SCH ×2 (07:34→20:02)
[2022-09-19] MEDS: INSULIN ASPART PER UNIT SC SCH ×4 (08:36→20:00)
--- NOTE | 2022-09-19 19:25 | Hospitalist Progress Note ---
Date of Service September 19, 2022 Assessment & Plan (1) Sepsis: Plan: Bernardino is a 57-year-old male with a 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 PCN allergy. I nitially with one dose of flagyl to cover anaerobe ?aspiration, CXR normal without hypoxia, discontinued 2/2 suspected urinary source Initially ordered norepinephrine for MAP less than 65, MAP improved and sustained greater than 70 with fluids and antibiotics. Norepinephrine deferred, PCU status. If pressures drop with MAP below 65 we will reorder and would require ICU admission Bilirubin elevated, AST 65, ALT 49? In setting of hypertension. Trended - CXR: Low lung volumes with bibasilar linear densities likely representing subsegmental atelectasis. 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 chronic back pain No other medical problems Patient's decision-maker and primary contact is his brother Antony At baseline will walk around the house, engage at approximately a fourth grade level, and is able to eat meals without difficulty/aspiration BSG Elevated BSG of 190 for admission, denies history of diabetes/antidiabetic medications SSI placed with goal [id number], A1c pending (2) UTI (urinary tract infection): (3) Impaired fasting glucose: (4) Hyperlipidemia: Admission and Anticipated Discharge Date Admission Date: September 18, 2022 Subjective pt non verbal pt also has underlyng incontinence as per brother Physical Exam Constitutional: pt non verbal Cardiovascular S1-S2 heard normally Lungs bilateral air entry decreased at bases Abdomen soft Extremity no edema Results & Data Results & Data ([facility]) Vital Signs (Past 12 Hours) Vital Signs Temp Pulse Resp BP Pulse Ox O2 Del Method 09/19/22 19:18 37.4 C 97 H 19 106/70 96 Room Air 09/19/22 15:22 37.8 C H 97 H 19 96/58 L 94 Room Air 09/19/22 12:02 36.9 C 101 H 18 100/65 97 Room Air 09/19/22 07:39 37.2 C 100 H 19 94/58 L 94 Room Air PG Care Time/CCT Total # of Minutes Spent Total Time Spent with Patient: Total time spent is greater than 50% in coordination of care (as documented) at patient's floor/unit and/or counseling patient: Coding Level of Care Code 88844 Subseq Hosp Care Lvl 2 Diagnoses Sepsis A41.9 UTI (urinary tract infection) N39.0 Impaired fasting glucose R73.01 Hyperlipidemia E78.5
[2022-09-20] MEDS: NSS + 20MEQ KCL 20 MEQ/1,000 ML BAG IV SCH ×3 (03:45→20:01)
[2022-09-20] MEDS: CEFEPIME 2,000 MG in SYRINGE 0 ML IV SCH ×2 (08:09→15:46)
[2022-09-20] MEDS: PANTOprazole 40 MG TAB PO SCH (08:15)
[2022-09-20] MEDS: INSULIN ASPART PER UNIT SC SCH ×4 (08:15→19:23)
[2022-09-20] MEDS: HEPARIN SOD 5,000 UNIT/0.5 ML VIAL SQ SCH ×2 (08:15→20:07)
--- NOTE | 2022-09-20 20:48 | Hospitalist Progress Note ---
Date of Service September 20, 2022 Assessment & Plan (1) Sepsis: Plan: Bernardino is a 57-year-old male with a 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 PCN allergy. I nitially with one dose of flagyl to cover anaerobe ?aspiration, CXR normal without hypoxia, discontinued 2/2 suspected urinary source Initially ordered norepinephrine for MAP less than 65, MAP improved and sustained greater than 70 with fluids and antibiotics. Norepinephrine deferred, PCU status. If pressures drop with MAP below 65 we will reorder and would require ICU admission Bilirubin elevated, AST 65, ALT 49? In setting of hypertension. Trended - CXR: Low lung volumes with bibasilar linear densities likely representing subsegmental atelectasis. 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 chronic back pain No other medical problems Patient's decision-maker and primary contact is his brother Antony At baseline will walk around the house, engage at approximately a fourth grade level, and is able to eat meals without difficulty/aspiration BSG Elevated BSG of 190 for admission, denies history of diabetes/antidiabetic medications SSI placed with goal [id number], A1c pending Sinus bradycardia Patient developed episode of sinus bradycardia with a heart rate in the 30s and this improved to sinus rate with a heart rate in the 60s to 80s within a few minutes with no intervention Discussed with patient's brother who wants this investigated with a cardiology evaluation Unsure if this represents sick sinus syndrome will obtain cardiology input in this regard (2) UTI (urinary tract infection): (3) Impaired fasting glucose: (4) Hyperlipidemia: Admission and Anticipated Discharge Date Admission Date: September 18, 2022 Subjective pt non verbal pt also has underlyng incontinence as per brother Patient is a was noted to have episodes of bradycardia with a heart rate in the 30s and this improved to heart rate of 60s to 80s with no intervention Physical Exam Physical Exam: Head and ENT no thyroid enlargement trachea midline Cardiovascular S1-S2 are normal no S3 Lungs bilateral air entry fair no wheezing Abdomen soft nondistended positive bowel sounds no rebound tenderness Extremity shows trace edema Neurologically not oriented to time or place, nonverbal Skin shows no rash no cyanosis Results & Data Results & Data ([facility]) Vital Signs (Past 12 Hours) Vital Signs Temp Pulse Resp BP Pulse Ox O2 Del Method 09/20/22 19:20 36.4 C L 94 H 18 126/77 93 Room Air 09/20/22 18:30 36.3 C L 79 18 108/53 L 97 Room Air 09/20/22 15:30 36.8 C 108 H 19 103/68 92 Room Air 09/20/22 11:45 37.2 C 83 19 134/85 95 Room Air PG Care Time/CCT Total # of Minutes Spent Total Time Spent with Patient: Total time spent is greater than 50% in coordination of care (as documented) at patient's floor/unit and/or counseling patient: Coding Level of Care Code 93158 Subseq Hosp Care Lvl 2 Diagnoses Sepsis A41.9 UTI (urinary tract infection) N39.0 Impaired fasting glucose R73.01 Hyperlipidemia E78.5
[2022-09-21] MEDS: NSS + 20MEQ KCL 20 MEQ/1,000 ML BAG IV SCH ×2 (04:21→12:28)
[2022-09-21 06:25] LABS: Hematocrit (blood only) 37.1 % (40.1-51.0); Hemoglobin 12.8 g/dl (14.0-18.0); Mean Corpuscular Hemoglobin 33.2 pg (25.0-34.0); Mean Corpuscular Hgb Conc 34.5 g/dL (32.0-36.0); Mean Corpuscular Volume 96.1 fL (80.0-100.0); Mean Platelet Volume 10.4 fL (9.4-12.4); Platelet Count 145 K/uL (130-400); RDW Coefficient of Variation 12.5 % (11.5-14.5); RDW Standard Deviation 44.1 fL (36.4-46.3); Red Blood Count 3.86 M/uL (4.63-6.08); White Blood Count 15.44 K/ul (4.8-10.8)
[2022-09-21 06:51] LABS: BUN Creatinine Ratio 17.6 (10-20); Calcium 8.5 mg/dl (8.5-10.1); Potassium 4.1 mmol/L (3.5-5.1)
[2022-09-21] MEDS: PANTOprazole 40 MG TAB PO SCH (08:05)
[2022-09-21] MEDS: HEPARIN SOD 5,000 UNIT/0.5 ML VIAL SQ SCH (08:05)
[2022-09-21] MEDS: INSULIN ASPART PER UNIT SC SCH ×3 (08:05→16:09)
--- NOTE | 2022-09-21 12:08 | Cardiology Consultation ---
Date of Consultation September 21, 2022 Assessment & Plan (1) Bradycardia: Plan 1. Sinus bradycardia: Patient did have an episode of sinus bradycardia. Presumably this happened while he was sleeping. The most notable episode happened at 1:00 a.m.. 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 Another episode did occur in the late afternoon, unclear the patient was sleeping at that time. There is no evidence of heart block. Baseline EKG did not demonstrate any significant conduction abnormalities. Unfortunately, the patient has some cognitive difficulties and is a poor and unreliable historian. However, the brother did not report any episodes of significant dizziness or syncope. Additionally, the patient is essentially wheelchair-bound with little ambulation. I do not think this represents a concerning finding. I do not think he requires any additional evaluation at this time. Additionally, the patient has a slightly abnormal baseline EKG with an atypical right bundle branch block. This is suggestive of a Brugada pattern, but not diagnostic. Again, in the absence of symptoms and given his age I do not think this needs to be pursued. History of Present Illness Reason for Consultation: Bradycardia Requesting Physician: Antonella Attending Physician: Jeff Berman MD History of Present Illness The patient is a 57-year-old gentleman without a known history of cardiac disease currently admitted for urinary tract infection. The patient does suffer from an intellectual disability and has some difficulty with communication and cognition. I did contact the patient's brother for some supplemental history. It seems that leading up to admission he had some significant abdominal and pelvic discomfort. He had evidence of sepsis at the time of admission and was started on supportive therapy and antibiotics. 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 These were not symptomatic and apparently occurred while the patient was sleeping. One additional episode happened in the evening. It is unclear the patient was sleeping at that time. Unfortunately, he is unable to give much in the way of history regarding symptoms. He did complain of some superficial chest discomfort on today's interview and some bilateral knee pain. According to his brother he spends most of the time in a wheelchair in is able to assist with transfer but does little walking. It is unclear the patient never experiences symptoms of dizziness. Brother could not recall any episodes of syncope. Allergies Allergy/AdvReac Type Severity Reaction Status Date / Time Penicillins Allergy Rash Verified 09/18/22 14:04 Home Medications Medication Instructions Recorded Confirmed Type No Known Home Medications 09/18/22 09/18/22 History Patient History Medical History Cognitive developmental delay Hyperlipidemia Surgical History No pertinent past surgical history Family History Father Aneurysm Brother Colon cancer Family/Other Hypertension Aneurysm Denies family history of Prostate cancer Social History Smoking Status: Unknown if ever smoked Second Hand Exposure: No; Hx Substance Use: No Preferred Language: Yi Communication Ability: Impaired Visual Impairment: No Limitations Hearing Ability: Normal 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 Some back pain. Physical Exam Physical Exam: The patient is alert and oriented. Mood and affect appeared normal. He did answer some questions but has difficulty with speech. He did follow commands. HEENT: Pupils are equal and reactive to light and accommodation. Extraocular movements are intact. The sclerae are anicteric. Neuro: Cranial nerves intact Lungs: Clear to auscultation bilaterally. He has good air movement without use of accessory muscles. No rales wheezes or rhonchi. Cardiac: Heart demonstrates a regular rate and rhythm. Normal S1 and S2. No murmurs on examination. Pulses: The patient has palpable radial pulses bilaterally that are equal in intensity Extremities: There was no evidence of hypoperfusion. There is no cyanosis or clubbing. There is no edema. Onychomycosis noted Skin: I did not appreciate any rashes on examination today. Results & Data ([facility]) Vital Signs (Past 12 Hours) Vital Signs Temp Pulse Resp BP BP Pulse Ox O2 Del Method 09/21/22 11:37 36.7 C 78 18 150/83 H 96 Room Air 09/21/22 08:00 36.7 C 69 18 135/86 96 Room Air 09/21/22 03:33 37 C 61 18 130/80 94 Room Air Laboratory Results Abnormal Lab Results 09/21/22 09/21/22 05:35 05:35 WBC 15.44 H RBC 3.86 L Hgb 12.8 L Hct 37.1 L MCV 96.1 MCH 33.2 MCHC 34.5 RDW Std Deviation 44.1 RDW Coeff of [place] 12.5 Plt Count 145 MPV 10.4 Sodium 136 Potassium 4.1 Chloride 108 H Carbon Dioxide 23 Anion Gap 5 BUN 13 Creatinine 0.74 Est Cr Clr Drug Dosing 111.0 Est GFR ( Amer) 117.0 Est GFR (Non-Af Amer) 101.0 BUN/Creatinine Ratio 17.6 Glucose 109 H Calcium 8.5 PG Care Time/CCT Total # of Minutes Spent Total Time Spent with Patient: Total time spent is greater than 50% in coordination of care (as documented) at patient's floor/unit and/or counseling patient: Coding Level of Care Code 71641 Inpt Consult Level 4 Diagnoses Bradycardia R00.1
--- NOTE | 2022-09-21 19:33 | Discharge Summary ---
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 He lives at home with caregivers who also have cameras in the home to help monitor activity. Reportedly was in his usual state of health until 1 week ago when he developed increased urinary frequency, but did not express or indicate pain. He had been taking Azo and cranberry extract over the last week. Last night he was up at 3 AM to urinate and went to bed, his brother then found him around 8 in the following morning in bed with a small amount of blood on the sheet suspected of urinary origin, more sedated, and fatigued and was brought to the ER for evaluation. On ER evaluation he met sepsis criteria due to tachycardia, hypotension, leukocytosis with left shift and elevated lactate/PCT with normal bicarb. Patient did receive empiric ceftriaxone which was expanded to cefepime due to severity of illness. Patient was originally ordered Zosyn, this was not given as and discussed with patient's family he had had reactions and allergy to penicillin which I think involved a rash but were not sure if this involved airway or lip swelling. Unclear if patient could have aspirated and anaerobe coverage was initially ordered, chest x-ray was clear and Flagyl was subsequently deferred. Patient was also initially ordered norepinephrine, however deven to systolic greater than 100 with maps above 70 with fluid and antibiotic treatment and this was deferred. History is limited at bedside due to patient's underlying nonverbal status, collateral was collected from patient's family and brother at bedside. Primary Contact is patient's brother Antony. He notes that Renate also has some congenital spine deformity with chronic back pain, but otherwise has no medical problems. No histories of falls/trauma/concussion. No daily medications. Medical History: Reviewed Medications: Reviewed Surgical History: Reviewed Allergies: Reviewed Social History: No tobacco/alcohol/substance use Code Status: Full code, discussed with family Principal Diagnosis UTI Discharge Exam Head and ENT no thyroid enlargement trachea midline Cardiovascular S1-S2 are normal no S3 Lungs bilateral air entry fair no wheezing Abdomen soft nondistended positive bowel sounds no rebound tenderness Extremity shows trace edema Neurologically not oriented to time or place, nonverbal Skin shows no rash no cyanosis Discharge Data Allergies Allergy/AdvReac Type Severity Reaction Status Date / Time Penicillins Allergy Rash Verified 09/18/22 14:04 Consultations 09/18/22 13:40 ED Decision to Admit Stat 09/20/22 20:53 Consult Cardiology Routine Ordered Studies 09/18/22 12:16 CT abd pelvis IV con only Stat Hospital Course (1) Sepsis: Bernardino is a 57-year-old male with a 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 PCN allergy. Initially with one dose of flagyl to cover anaerobe ?aspiration, CXR normal without hypoxia, discontinued 2/2 suspected urinary source Initially ordered norepinephrine for MAP less than 65, MAP improved and sustained greater than 70 with fluids and antibiotics. Norepinephrine deferred, PCU status. If pressures drop with MAP below 65 we will reorder and would require ICU admission Bilirubin elevated, AST 65, ALT 49? In setting of hypertension. Trended - CXR: Low lung volumes with bibasilar linear densities likely representing subsegmental atelectasis. 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 chronic back pain No other medical problems Patient's decision-maker and primary contact is his brother Antony At baseline will walk around the house, engage at approximately a fourth grade level, and is able to eat meals without difficulty/aspiration BSG Elevated BSG of 190 for admission, denies history of diabetes/antidiabetic medications SSI placed with goal [id number], A1c pending Sinus bradycardia Patient developed episode of sinus bradycardia with a heart rate in the 30s and this improved to sinus rate with a heart rate in the 60s to 80s within a few minutes with no intervention Discussed with patient's brother who wants this investigated with a cardiology evaluation Unsure if this represents sick sinus syndrome will obtain cardiology input in this regard (2) UTI (urinary tract infection): (3) Impaired fasting glucose: (4) Hyperlipidemia: Plan Discussed with patient's brother who had wanted the patient discharged today. Patient found to have episodes of bradycardia intermittently and this was evalu ated by cardiology this a.m. Patient's brother subsequent to the cardiology consultation wanted the patient to be discharged immediately in spite of me explaining that the patient continues episodes of bradycardia And patient may also need additional days of IV antibiotics till culture sensitivities return Patient's brother however reports that patient's condition is significantly improved and he wants to follow-up with his PCP as an outpatient does not want patient to have any additional testing or any additional medications at this time I along with the nurse attempted to explain the patient brother who is a primary facility maintenance mechanic but patient's brother reports that he understands the risks and the benefits and wants to discharge AGAINST MEDICAL ADVICE and signed the papers Total Time Total Time Spent Total Time Spent (In Minutes): 45 minutes Discharge Plan Discharge Items Patient Disposition: Against Medical Advice Reason For Visit: UROSEPSIS Condition on Discharge: Fair Activity: Per Instructions section Lifting: Gradually increase as tolerated Bathing: No limitations Non-emergency contact: Primary Care Provider Follow-up/Referrals: Renato Curiel MD [Primary Care Provider] - Pending Studies at Discharge: No Stand-Alone Forms: [facility] [employer], Smoking Cessation Medications and DC Order Prescriptions: No Action No Known Home Medications Discharge Orders: Discharge Order (Routine); Ordered 09/21/22 Ordered By: Jeff Berman Left Against Medical Advice (Routine); Ordered 09/21/22 Ordered By: Jeff Chatterjee/Other Patient Handouts: Prediabetes, 5 Steps for Eating Healthier Admission Data Admit Date/Time: 09/18/22 13:54 Attending Provider: Jeff Berman Admit Provider: Андрей Sutton Primary Care Provider: Renato Curiel Other Providers: Андрей Sutton ; Alvin,[facility] ; Rudolph Foster Coding Level of Care Code D/C DAY MANAGEMENT >30 MINS Diagnoses Sepsis A41.9 UTI (urinary tract infection) N39.0 Impaired fasting glucose R73.01 Hyperlipidemia E78.5 Time Spent (min) 45
== END 2022-09-21 18:09 | disposition left against medical advice (07) | DRG 872 ==
LOC: ED 11:14 → 4W 13:54 → SUATTDRO 13:54 → 4W 16:02

== ENCOUNTER 2024-10-24 14:01 | Inpatient (IN) ==
[2024-10-24 14:39] LABS: Hematocrit (blood only) 40.8 % (42.0-52.0); Hemoglobin 14.2 g/dl (14.0-18.0); Mean Corpuscular Hemoglobin 33.3 pg (25.0-34.0); Mean Corpuscular Hgb Conc 34.8 g/dL (32.0-36.0); Mean Corpuscular Volume 95.8 fL (80.0-100.0); Mean Platelet Volume 9.6 fL (9.4-12.4); Platelet Count 170 K/uL (130-400); RDW Coefficient of Variation 12.2 % (11.5-14.5); RDW Standard Deviation 43.2 fL (36.4-46.3); Red Blood Count 4.26 M/uL (4.70-6.10); White Blood Count 13.39 K/ul (4.8-10.8)
[2024-10-24 14:41] LABS: iSTAT Creatinine 0.9 mg/dl (0.6-1.3); iSTAT Hemoglobin 13.9 g/dl (14.0-18.0); iSTAT Ionized Calcium 1.2 mmol/l (1.12-1.32)
--- NOTE | 2024-10-24 14:49 | Emergency Department Note ---
Impression & Plan Bright red rectal bleeding, Cognitive developmental delay ED Provider Note Provider: Romie Naik MD CHIEF COMPLAINT: Rectal bleeding HISTORY OF PRESENT ILLNESS: Patient is a 59-year-old gentleman history of intellectual disability and nonverbal status as well as prediabetes and vitamin D deficiency presenting here with brother today with reports of rectal bleeding. Patient evidently developed rectal bleeding just today. Evidently an episode just before noon. Second episode of rectal bleeding later this afternoon blood not only in his depends that he wears but also in the toilet. Bright red blood with clots reported. According to brother patient did not seem to be complaining or in pain or discomfort. Patient is nonverbal's time is limited history from him. No history of colonoscopy per her recollection. Not on blood thinners. No trauma history reported. No recent illness reported. PAST MEDICAL HISTORY: As noted above MEDICATIONS: No blood thinners or anticoagulants reported SOCIAL HISTORY: Lives at home with family PHYSICAL EXAM: GENERAL: alert in no acute distress on stretcher brother at bedside Head: normocephalic and atraumatic EYES: No injection, discharge or icterus. EOMI. NECK: Trachea midline. ENT: Mucous membranes pink and moist. LUNGS: Airway patent. No retractions. Breath sounds clear HEART: Regular tachycardic rate and rhythm. No chest wall tenderness ABDOMEN: Soft and non-tender, without guarding or rebound. No apparent masses Rectal: With RN mailroom assistant present, no obvious external hemorrhoid appreciable. No erythema. No bright red blood per rectum noted. Some brownish stool Hemoccult negative found in the rectal vault. SKIN: Acyanotic, warm, dry, without rashes EXTREMITIES: Without swelling, tenderness or deformity NEUROLOGICAL: No focal deficits. No aphasia. No facial droop. EK bpm. Sinus tachycardia. No ST segment elevation or depression with some baseline artifact. QTc 449. CONTINUOUS CARDIAC MONITORING: was ordered and showed a heart rate of 100s to 110s bpm in sinus tachycardia to 90 bpm in normal sinus rhythm Patient's laboratory studies and imaging reviewed. Differential includes Diverticulosis, AVM, coagulopathy, colitis, inflammatory bowel disease, malignancy, Keli-Hines tear, esophagitis, peptic ulcer disease, variceal bleed, gastritis, epistaxis, fissure, hemorrhoids, as well as other pathologies. IMPRESSION/MEDICAL DECISION MAKING: Patient in no apparent distress. Blood pressure somewhat borderline upon arrival with borderline tachycardia. No history of anticoagulants. No trauma history. No history of colonoscopy. Patient with 2 episodes of bloody bowel movements. Rectal here at bedside without evidence of hemorrhoid or active bleeding at this point. Little bit of brownish stool heme-negative. No significant abdominal tenderness. Basic blood work obtained here. Mild leukocytosis of 13.9 but no anemia hemoglobin 14. Normal platelet count 170. No sick contacts or travel reported. Electrolytes without significant abnormality and BUN is normal. Normal renal function. No evidence of hepatitis or pancreatitis based on labs. Sent for CT abdomen pelvis to look for any signs of active bleeding. Doubt dissection. Question if this could be maybe a lower GI bleed related to possible mass, or diverticulitis. CT report from radiology without findings of active extravasation. Noted on report question of cystitis without evidence of active GI bleed. No other inflammatory findings are reported of the bowel. UA still pending collection. BP improved without intervention. Given the fact that he is nonverbal and had to fairly large bloody with clots bowel movements will bring in for further observation. Patient's brother updated at bedside. Hospitalist contacted. DIAGNOSIS: Rectal bleeding, intellectual disability DISPOSITION: Hospitalist will evaluate Patient was agreeable with this plan. Past Med/Surg History Problem List (Updated 10/24/24 @ 16:26 by Jes Villafana PA-C) Sepsis UTI (urinary tract infection) Leukocytosis Bright red rectal bleeding (Acute) Prediabetes Vitamin D deficiency Hyperlipidemia Chronic low back pain Anxiety Fracture of left great toe Cognitive developmental delay (Acute) Medical History Bradycardia Elevated lactic acid level UTI (urinary tract infection) Sepsis Impaired fasting glucose Hyperlipidemia Surgical History No pertinent past surgical history Family History Father Aneurysm Brother Colon cancer Family/Other Hypertension Aneurysm Denies family history of Prostate cancer Social History Smoking Status: Never smoker Second Hand Exposure: No; Do You Dip or Chew Tobacco: No; Hx Alcohol Use: No Hx Substance Use: No Preferred Language: Turkish Communication Ability: Impaired Communication Ability Comment: Intilectally delayed Visual Impairment: No Limitations Hearing Ability: Normal Organizational Psychologist Required: No Beliefs That Will Affect Care: None marital status: single Current Living Situation: Family Current Living Situation Comment: lives with brothers current occupational status: disabled Feels Safe at Home: Yes Diet: regular caffeine: Yes Dental Care, Regularly: No Physical Activity Frequency: Does not Exercise Seatbelt Use: always Sunscreen Use: Yes Assistive Devices: Wheelchair Allergies Allergies Allergy/AdvReac Type Severity Reaction Status Date / Time Penicillins Allergy Rash Verified 06/11/24 15:21 Home Meds Home Medications Medication Instructions Recorded Confirmed vitamin C 90 mg-zinc gluconate 15 2 anais PO DAILY 10/24/24 10/24/24 mg-herbal complex no. 325 lozenges Previous Rx's Medication Instructions Recorded Wheelchair (Manual) #1 ea 05/09/23 Results & Data (ED) Vital Signs Vital Signs - 24 hr 10/24/24 14:05 10/24/24 14:15 10/24/24 14:30 Temperature 37.5 C Temperature Source Temporal Artery Scan Pulse Rate 126 H Pulse Rate [Apical] 105 H Pulse Rhythm Regular Respiratory Rate 20 Respiratory Effort / Characteristics Non-Labored Spontaneous Respiratory Depth Normal Respiratory Pattern Regular Blood Pressure 94/57 L Blood Pressure [Left Arm] 106/73 Blood Pressure Mean 69 Blood Pressure Mean [Left Arm] 84 Blood Pressure Position [Left Arm] Semi-fowlers Pulse Oximetry 94 96 Oxygen Delivery Method Room Air Room Air Sepsis Recent Fever Within 48 Hours No Sepsis New/Unexplained Change in Mental Status No Sepsis Action Taken by Nursing No Action Required 10/24/24 16:05 Temperature Temperature Source Pulse Rate 103 H Pulse Rate [Apical] Pulse Rhythm Respiratory Rate Respiratory Effort / Characteristics Respiratory Depth Respiratory Pattern Blood Pressure Blood Pressure [Left Arm] Blood Pressure Mean Blood Pressure Mean [Left Arm] Blood Pressure Position [Left Arm] Pulse Oximetry Oxygen Delivery Method Sepsis Recent Fever Within 48 Hours Sepsis New/Unexplained Change in Mental Status Sepsis Action Taken by Nursing Laboratory Data 10/24/24 14:23 10/24/24 14:23 Lab Results 10/24/24 10/24/24 10/24/24 Range/Units 14:23 14:24 14:28 WBC 13.39 H (4.8-10.8) K/ul RBC 4.26 L (4.70-6.10) M/uL Hgb 14.2 (14.0-18.0) g/dl POC Hgb (14.0-18.0) g/dl Hct 40.8 L (42.0-52.0) % POC Hct (42-52) % MCV 95.8 (80.0-100.0) fL MCH 33.3 (25.0-34.0) pg MCHC 34.8 (32.0-36.0) g/dL RDW Std Deviation 43.2 (36.4-46.3) fL RDW Coeff of Francisco 12.2 (11.5-14.5) % Plt Count 170 (130-400) K/uL MPV 9.6 (9.4-12.4) fL Immature Gran % (Auto) 0.4 % Neut % (Auto) 95.4 % Lymph % (Auto) 1.3 % [place] % (Auto) 2.8 % Eos % (Auto) 0.0 % Baso % (Auto) 0.1 % Neut # (Auto) 12.77 H (1.40-6.50) K/uL Lymph # (Auto) 0.17 L (1.20-3.40) K/uL [place] # (Auto) 0.38 (0.11-0.59) K/uL Eos # (Auto) 0.00 (0.00-0.50) K/uL Baso # (Auto) 0.02 (0.00-0.20) K/uL Immature Gran # (Auto) 0.05 (0.01-0.20) K/uL Toxic Vacuolation 1+ PT 10.9 (9.0-12.0) Seconds INR 1.0 (0.9-1.1) APTT 24 (21-31) Seconds PTT Ratio 0.9 POC Sodium (135-144) mmol/L Sodium 138 (136-145) mmol/L POC Potassium (3.3-5.0) mmol/L Potassium 4.0 (3.5-5.1) mmol/L POC Chloride (101-112) mmol/L Chloride 104 (98-107) mmol/L Carbon Dioxide 28 (21-32) mmol/L POC Total CO2 (24-31) mmol/L Anion Gap 6 (3-11) POC Anion Gap (16-25) mmol/L POC BUN (7-18) mg/dl BUN 14 (6-23) mg/dl Creatinine 0.79 (0.6-1.4) mg/dl POC Creatinine (0.6-1.3) mg/dl Est Cr Clr Drug Dosing 95.0 ml/min eGFR 101.07 BUN/Creatinine Ratio 17.7 (10-20) Glucose 184 H (70-99(Fasting)) mg/dl POC Glucose (other) (70-99) mg/dl Calcium 9.1 (8.6-10.3) mg/dl POC Ioniz Calcium Denys (1.12-1.32) mmol/l Total Bilirubin 1.3 H (0.2-1.0) mg/dl AST 27 (13-39) U/L ALT 36 (7-52) U/L Alkaline Phosphatase 230 H (34-104) U/L Troponin I High Sens 9.7 (0-20) pg/ml Total Protein 6.3 (6.0-8.3) gm/dl Albumin 3.8 (3.4-5.0) gm/dl Globulin 2.5 (2.5-4.0) gm/dl Albumin/Globulin Ratio 1.5 (0.9-2) Lipase 17 (11-82) U/L POC Stool Occult Blood Negative (Negative) SARS-CoV-2, RNA, NAAT NEGATIVE (NEGATIVE) Blood Type O Positive Antibody Screen NEGATIVE 10/24/24 Range/Units 14:29 WBC (4.8-10.8) K/ul RBC (4.70-6.10) M/uL Hgb (14.0-18.0) g/dl POC Hgb 13.9 L (14.0-18.0) g/dl Hct (42.0-52.0) % POC Hct 41 L (42-52) % MCV (80.0-100.0) fL MCH (25.0-34.0) pg MCHC (32.0-36.0) g/dL RDW Std Deviation (36.4-46.3) fL RDW Coeff of Francisco (11.5-14.5) % Plt Count (130-400) K/uL MPV (9.4-12.4) fL Immature Gran % (Auto) % Neut % (Auto) % Lymph % (Auto) % [place] % (Auto) % Eos % (Auto) % Baso % (Auto) % Neut # (Auto) (1.40-6.50) K/uL Lymph # (Auto) (1.20-3.40) K/uL [place] # (Auto) (0.11-0.59) K/uL Eos # (Auto) (0.00-0.50) K/uL Baso # (Auto) (0.00-0.20) K/uL Immature Gran # (Auto) (0.01-0.20) K/uL Toxic Vacuolation PT (9.0-12.0) Seconds INR (0.9-1.1) APTT (21-31) Seconds PTT Ratio POC Sodium 140 (135-144) mmol/L Sodium (136-145) mmol/L POC Potassium 4.0 (3.3-5.0) mmol/L Potassium (3.5-5.1) mmol/L POC Chloride 102 (101-112) mmol/L Chloride (98-107) mmol/L Carbon Dioxide (21-32) mmol/L POC Total CO2 26 (24-31) mmol/L Anion Gap (3-11) POC Anion Gap 17.0 (16-25) mmol/L POC BUN 13 (7-18) mg/dl BUN (6-23) mg/dl Creatinine (0.6-1.4) mg/dl POC Creatinine 0.9 (0.6-1.3) mg/dl Est Cr Clr Drug Dosing ml/min eGFR BUN/Creatinine Ratio (10-20) Glucose (70-99(Fasting)) mg/dl POC Glucose (other) 176 H (70-99) mg/dl Calcium (8.6-10.3) mg/dl POC Ioniz Calcium Denys 1.20 (1.12-1.32) mmol/l Total Bilirubin (0.2-1.0) mg/dl AST (13-39) U/L ALT (7-52) U/L Alkaline Phosphatase (34-104) U/L Troponin I High Sens (0-20) pg/ml Total Protein (6.0-8.3) gm/dl Albumin (3.4-5.0) gm/dl Globulin (2.5-4.0) gm/dl Albumin/Globulin Ratio (0.9-2) Lipase (11-82) U/L POC Stool Occult Blood (Negative) SARS-CoV-2, RNA, NAAT (NEGATIVE) Blood Type Antibody Screen Administered Medications Discontinued Medications Pantoprazole Sodium (Protonix) 40 mg in 10 mls @ 5 mls/min IV NOW ONE Stop: 10/24/24 15:26 Last Admin: 10/24/24 15:33 Dose: 5 mls/min Documented By: ADRIANE Ioversol (Optiray 320 125ml) 116 ml IV ONCE ONE Stop: 10/24/24 15:06 Last Admin: 10/24/24 15:05 Dose: 116 ml Documented By: JEREMY Imaging Data Radiologist's Impression: Abdomen/Pelvis CTA 10/24/24 14:37 EXAM: CT Angiography Abdomen and Pelvis With Intravenous Contrast INDICATION: Rectal bleeding. TECHNIQUE: Axial computed tomographic angiography images of the abdomen and pelvis with intravenous contrast. Sagittal and coronal reformatted images were created and reviewed. This CT exam was performed using one or more of the following dose reduction techniques: automated exposure control, adjustment of the mA and/or kV according to patient size, and/or use of iterative reconstruction technique. MIP reconstructed images were created and reviewed. CONTRAST: 116ml of Optiray 320 was administered intravenously. COMPARISON: 09/18/2022 FINDINGS: VASCULATURE: Aorta: Atherosclerotic calcification of the aorta and branches. No aneurysm. Celiac trunk and mesenteric arteries: No acute change noted. No occlusion or significant stenosis. Renal arteries: No acute change noted. No occlusion or significant stenosis. Iliac arteries: No acute change noted. No occlusion or significant stenosis. Lung bases: Atelectasis noted in the lung bases. Heart: Cardiomegaly. ABDOMEN: Liver: Normal size and contour. Hypodense typical of steatosis. No mass or ductal dilation. Gallbladder and bile ducts: Multiple gallstones present. Stable prominent wall thickness. No ductal dilatation or stone. No biliary gas. Pancreas: No abnormality noted. No ductal dilation. No mass. Spleen: No abnormality noted. No splenomegaly. Adrenals: No abnormality noted. No mass. Kidneys and ureters: No abnormality noted. No hydronephrosis. No solid mass. Stomach and bowel: Scattered stool and gas throughout the redundant colon. No intraluminal hyperdensity to suggest acute hemorrhage. No obstruction. No mucosal thickening. PELVIS: Appendix: Well seen and appears normal. Bladder: Urinary bladder is incompletely distended and appears inflamed. No gas or stone. Reproductive: Mild prominent prostate is unchanged. ABDOMEN and PELVIS: Intraperitoneal space: No abnormality noted. No significant fluid collection. No free air. Bones/joints: Degenerative changes noted throughout the spine. No acute osseous abnormality seen. Soft tissues: No abnormality noted. Lymph nodes: No abnormality noted. No enlarged lymph nodes. IMPRESSION: 1. Cystitis. Correlate with urinalysis. 2. No CT evidence of acute gastrointestinal hemorrhage. 3. Cholelithiasis. 4. Hepatic steatosis. ACT 112: Negative or not required by law. Electronically signed by Reva Block 10-24-2024 3:20 PM Discharge Plan Visit Data Chief Complaint: Rectal Bleed Stated Complaint: RECTAL BLEED ED Provider: Romie Naik Discharge Problem: Bright red rectal bleeding, Cognitive developmental delay Patient Disposition: Being Evaluated by Hospitalist Prescriptions Prescriptions: No Action (DME) Wheelchair (Manual) Device See Rx Instructions .Route Qty: 1 0RF Rx Instructions: As directed Elderberry Zinc Vit C 90-15 mg Lozenge 2 anais PO DAILY Referrals Referrals: Renato Curiel MD [Primary Care Provider] -
[2024-10-24 14:55] LABS: Albumin Globulin Ratio 1.5 (0.9-2); Albumin Level 3.8 gm/dl (3.4-5.0); BUN Creatinine Ratio 17.7 (10-20); Bilirubin,Total 1.3 mg/dl (0.2-1.0); Calcium 9.1 mg/dl (8.6-10.3); Globulin 2.5 gm/dl (2.5-4.0); Total Protein 6.3 gm/dl (6.0-8.3)
[2024-10-24 15:02] LABS: Troponin I High Sensitivity 9.7 pg/ml (0-20)
[2024-10-24 15:03] LABS: Basophils # (auto) 0.02 K/uL (0.00-0.20); Basophils % (auto) 0.1 %; Immature Granulocytes # (auto) 0.05 K/uL (0.01-0.20); Immature Granulocytes % (auto) 0.4 %; Lymphocytes # (auto) 0.17 K/uL (1.20-3.40); Lymphocytes % (auto) 1.3 %; Monocytes # (auto) 0.38 K/uL (0.11-0.59); Monocytes % (auto) 2.8 %; Neutrophils # (auto) 12.77 K/uL (1.40-6.50); Neutrophils % (auto) 95.4 %; Toxic Vacuolation 1+
[2024-10-24] MEDS: OPTIRAY 320 125ml IV ONE (15:05)
[2024-10-24 15:14] LABS: Partial Thromboplastin Ratio 0.9; Partial Thromboplastin Time 24 Seconds (21-31); Prothrombin Time 10.9 Seconds (9.0-12.0)
--- NOTE | 2024-10-24 15:20 | CT Scan Report ---
EXAM: CT Angiography Abdomen and Pelvis With Intravenous Contrast INDICATION: Rectal bleeding. TECHNIQUE: Axial computed tomographic angiography images of the abdomen and pelvis with intravenous contrast. Sagittal and coronal reformatted images were created and reviewed. This CT exam was performed using one or more of the following dose reduction techniques: automated exposure control, adjustment of the mA and/or kV according to patient size, and/or use of iterative reconstruction technique. MIP reconstructed images were created and reviewed. CONTRAST: 116ml of Optiray 320 was administered intravenously. COMPARISON: 09/18/2022 FINDINGS: VASCULATURE: Aorta: Atherosclerotic calcification of the aorta and branches. No aneurysm. Celiac trunk and mesenteric arteries: No acute change noted. No occlusion or significant stenosis. Renal arteries: No acute change noted. No occlusion or significant stenosis. Iliac arteries: No acute change noted. No occlusion or significant stenosis. Lung bases: Atelectasis noted in the lung bases. Heart: Cardiomegaly. ABDOMEN: Liver: Normal size and contour. Hypodense typical of steatosis. No mass or ductal dilation. Gallbladder and bile ducts: Multiple gallstones present. Stable prominent wall thickness. No ductal dilatation or stone. No biliary gas. Pancreas: No abnormality noted. No ductal dilation. No mass. Spleen: No abnormality noted. No splenomegaly. Adrenals: No abnormality noted. No mass. Kidneys and ureters: No abnormality noted. No hydronephrosis. No solid mass. Stomach and bowel: Scattered stool and gas throughout the redundant colon. No intraluminal hyperdensity to suggest acute hemorrhage. No obstruction. No mucosal thickening. PELVIS: Appendix: Well seen and appears normal. Bladder: Urinary bladder is incompletely distended and appears inflamed. No gas or stone. Reproductive: Mild prominent prostate is unchanged. ABDOMEN and PELVIS: Intraperitoneal space: No abnormality noted. No significant fluid collection. No free air. Bones/joints: Degenerative changes noted throughout the spine. No acute osseous abnormality seen. Soft tissues: No abnormality noted. Lymph nodes: No abnormality noted. No enlarged lymph nodes. IMPRESSION: 1. Cystitis. Correlate with urinalysis. 2. No CT evidence of acute gastrointestinal hemorrhage. 3. Cholelithiasis. 4. Hepatic steatosis. ACT 112: Negative or not required by law. Electronically signed by Reva Block 10-24-2024 3:20 PM
[2024-10-24] MEDS: PANTOprazole 40 MG/10 ML SYR IV ONE (15:33)
--- NOTE | 2024-10-24 15:38 | History & Physical Report ---
Date of Service October 24, 2024 Assessment & Plan (1) Sepsis: (2) UTI (urinary tract infection): Plan: patient's brother stated that he noticed 2 occurrences of blood in toilet - unclear of etiology urine vs bowel Bloody discharge from penis and history of ureteral irritation from chronic masturbation patient complaining of abdominal pain and nausea (similar to previous with urosepsis) CTAP showing no evidence of acute GI hemorrhage, no diverticulitis, but cystitis - Hemoccult negative and BUN WNL - likely not GI bleed - hemoglobin stable, 14.2 SIRS criteria: - Leukocytosis with neutrophil predominance (WBC 13.39) - Tachycardic (Hr 126) and hypotensive (94/57) Fluids: Sepsis fluid bolus for ideal body weight = 2100 - NSS 2250 mL bolus in ED (No LR given critical IV shortage) - lift N.p.o. and DC Protonix as likely no GI bleed - UA ordered - lactate ordered - will trend if > 2 - blood cultures ordered - start Rocephin - previous cultures grew love-sensitive Citrobacter koseri - Rocephin and cefepime during previous admissions with no allergic reactions (allergy to Penicillin) (3) Decreased urine output: Plan: Suspect possibly due to obstruction with clot vs poor hydration with NPO last urinary output 1230 - bladder scan ordered - 238 mL - bladder scan and straight cath prn overnight (4) Cognitive developmental delay: Plan: - essentially nonverbal, can respond yes or no - under care of brothers and [id number] at home - Wheelchair at baseline - requires assistance - family denies change in weakness or ambulation - fall and aspiration precautions (5) Prediabetes: Plan: history prediabetes diet controlled glucose 184 on admission - suspect elevated due to acute infection - Most recent A1C 5.9 (08/2024) - will add loose SSI with target BSG range 110-180mg/dL, CF 45 - BSG ACHS Plan VTE ppx: SCDs; defer pharmacologic therapy as bleeding Diet: Clears - can advance to regular once confirm no ongoing GI bleeding and bowel movement here Code status: DNR/DNI Dispo: Med/tele given sepsis and hypotensive Admission and Anticipated Discharge Date Admission Date: 10/24/24 History of Present Illness Chief Complaint: rectal bleed Primary Care Provider: Renato Curiel MD Patient is a 59-year-old male with an intellectual disability making him nonverbal, past history of prediabetes, vitamin D deficiency, hyperlipidemia. He does not take any medications at home. The patient's brother was at bedside and provided the following history. He noticed at 11 AM and 1230 pm today that the patient had bright red blood in his depends and in the toilet. He originally thought it was bleeding from the rectum because of the large amount of blood that was present, although after further thought and evaluation, believes it may have come from the urine. He stated that the patient has irritation and dried blood around the tip of his penis. The patient was able to say that he does have stomach pain and nausea. The patient's brother also noted that he has had a decreased appetite today. The patient does have a history of urosepsis, in which he had stomach cramps, hematuria, and nausea before. The patient's brother also noted that he drinks a lot of green tea which they contribute to UTIs, he has been drinking more green tea than normal. The patient is under the care of of his brothers and [id number]; the patient's brother lives next door. He uses a wheelchair at baseline and needs assistance to transfer. Allergies Allergy/AdvReac Type Severity Reaction Status Date / Time Penicillins Allergy Rash Verified 06/11/24 15:21 Home Medications Medication Instructions Recorded Confirmed Type Wheelchair (Manual) #1 ea 05/09/23 06/11/24 Rx vitamin C 90 mg-zinc gluconate 15 2 anais PO DAILY 10/24/24 10/24/24 History mg-herbal complex no. 325 lozenges Past Med/Surg History Problem List (Updated 10/24/24 @ 16:44 by Jes Villafana PA-C) Decreased urine output Sepsis UTI (urinary tract infection) Leukocytosis Bright red rectal bleeding (Acute) Prediabetes Vitamin D deficiency Hyperlipidemia Chronic low back pain Anxiety Fracture of left great toe Cognitive developmental delay (Acute) Medical History Bradycardia Elevated lactic acid level UTI (urinary tract infection) Sepsis Impaired fasting glucose Hyperlipidemia Surgical History No pertinent past surgical history Family History Father Aneurysm Brother Colon cancer Family/Other Hypertension Aneurysm Denies family history of Prostate cancer Social History Smoking Status: Never smoker Second Hand Exposure: No; Do You Dip or Chew Tobacco: No; Hx Alcohol Use: No Hx Substance Use: No Preferred Language: Prydeinig Communication Ability: Impaired Communication Ability Comment: Intilectally delayed Visual Impairment: No Limitations Hearing Ability: Normal Color Blender Required: No Beliefs That Will Affect Care: None marital status: single Current Living Situation: Family Current Living Situation Comment: lives with brothers current occupational status: disabled Feels Safe at Home: Yes Diet: regular caffeine: Yes Dental Care, Regularly: No Physical Activity Frequency: Does not Exercise Seatbelt Use: always Sunscreen Use: Yes Assistive Devices: Wheelchair Review of Systems Review of Systems: see HPI Physical Exam Physical Exam: The patient is awake, nonverbal, well developed and well nourished, normocephalic and atraumatic, in no acute distress. Non-toxic appearing. HEENT- EOMI, mucous membranes moist. Hearing grossly intact. Heart-normal S1 and S2. No murmurs, rubs or gallops. Lungs-clear bilaterally, no respiratory distress, no accessory muscle use. Abdomen-normal bowel sounds and soft. No ascites noted. Non-tender. Extremities- no clubbing, cyanosis, or edema. Results & Data Results & Data Vital Signs (Past 12 Hours) Vital Signs Temp Pulse Pulse Resp BP BP Pulse Ox 10/24/24 14:30 105 H 106/73 10/24/24 14:15 96 10/24/24 14:05 37.5 C 126 H 20 94/57 L 94 O2 Del Method 10/24/24 14:30 10/24/24 14:15 Room Air 10/24/24 14:05 Room Air Code Status & VTE Plan Code Status DNR/DNI VTE Prophylaxis Plan VTE Prophylaxis will be ordered: Yes Supervising Physician Co-Signing Physician Notes Patient seen and examined, chart reviewed, case discussed with Jes Villafana PA-C and I agree with the assessment and plan as above except as otherwise noted Labs and images reviewed 59-year-old male with a history of intellectual disability, urinary sepsis, and prediabetes who presents with blood in the toilet and in his diaper, hypotension, and tachycardia. Initially recommended for admission for concern of GI bleed. CTA/P with contrast does not show any extravasation, no evidence of diverticulitis/diverticulosis. Cystitis and bladder wall thickening is noted. Rectal occult blood is negative. Patient has minimal urine output in the last day, and 100 cc of urine estimated by CT. Discussed with patient's family, he does have a history of urethral irritation due to chronic masturbation and has had bloody discharge from the penis in the last day. Suspect his bleeding is from source rather than GI. Patient is hypotensive in the 90s, tachycardic, with a leukocytosis, and cystitis on his CT. Suspect patient is developing urosepsis. Given minimal p.o. intake in the last day, decreasing urine output, and hypotension treatment for sepsis with IV fluids is warranted. 30 cc/kg IBW/AB W goal is 2100/20 to 95 cc, 2250 cc saline bolus ordered to satisfy sepsis recommendations. Blood cultures ordered. Rocephin ordered. No history of resistant UTIs. Penicillin allergic but has tolerated high generation cephalosporins well in the past. Lactate ordered. History of prediabetes, BSG 184. Likely elevated with acute infection. He is not on any antiglycemic agents at home. Will place on sliding scale goal [id number], correction factor 45, no ratio at this time and will adjust as/if needed. Do not suspect that there is a GI bleed, will advance diet to at least clears pending further evaluation. If no ongoing GI bleeding is noted and bowel movements here then advance to full. PPI discontinued, no evidence of upper GI bleed, BUN is not elevated, hemoglobin stable, and there is no epigastric tenderness. Agree with above. PG Care Time/CCT Total # of Minutes Spent Total Time Spent with Patient: Total time spent is greater than 50% in coordination of care (as documented) at patient's floor/unit and/or counseling patient: Coding Level of Care Code None Diagnoses Sepsis A41.9 UTI (urinary tract infection) N39.0 Decreased urine output R34 Cognitive developmental delay F81.9 Prediabetes R73.03
--- NOTE | 2024-10-24 16:47 | Billing Data ---
Date of Service October 24, 2024 Coding Level of Care Code 58584 CRITICAL CARE 1ST 30-74M Time Spent (min) 35 Comment Identification and initial treatment of sepsis UTI source; in addition to all other care.
[2024-10-24] MEDS: SODIUM CHLORIDE 0.9% 1,000 ML IV ONE ×2 (17:01→18:08)
[2024-10-24 18:28] LABS: Appearance Urine Clear (Clear); Bacteria Urine Automated None Seen (None Seen); Bilirubin Urine Negative (Negative); Blood Urine 3+ (Negative); Cast Urine Automated 0-2 /lpf (0-2); Color Urine Yellow; Epithelial Cell Urine Auto 0-2 /hpf (0-2); Glucose Urine UA Negative (Negative); Ketones Urine 1+ (Negative); Leukocyte Esterase Urine 1+ (Negative); Nitrite Urine Negative (Negative); Protein Urine Negative (Negative); RBC Urine Automated >20 /hpf (0-2); Specific Gravity Urine > 1.045 (1.000-1.030); Urobilinogen Urine Positive (Negative); pH Urine 5.5 (4.5-7.5)
[2024-10-24] MEDS ORDERED: CARBOHYDRATES FOR HYPOGLYCEMIA PO PRN (19:09)
[2024-10-24] MEDS ORDERED: DEXTROSE 50% 50 ML SYRINGE IV PRN (19:09)
[2024-10-24] MEDS ORDERED: GLUCOSE 40% GEL 15 GM TUBE PO PRN (19:09)
[2024-10-24] MEDS ORDERED: GLUCAGON FOR INJ 1 MG VIAL SQ PRN (19:09)
[2024-10-24] MEDS ORDERED: GLUCOSE 10 TAB/TUBE PO PRN (19:09)
[2024-10-24] MEDS ORDERED: ACETAMINOPHEN 325 MG TAB PO PRN (19:09)
[2024-10-24] MEDS ORDERED: ONDANSETRON INJ 2 MG/ML 2 ML VIAL IV PRN (19:09)
[2024-10-24] MEDS ORDERED: DOCUSATE SODIUM 100 MG CAP PO PRN (19:09)
[2024-10-24] MEDS: SODIUM CHLORIDE 0.9% 250 ML IV ONE (19:31)
[2024-10-24] MEDS: cefTRIAXone SODIUM 2,000 MG/50 ML BAG IV SCH (19:50)
[2024-10-24] MEDS: INSULIN ASPART PER UNIT CHARGE SC SCH (20:33)
[2024-10-25 06:23] LABS: Hematocrit (blood only) 35.6 % (42.0-52.0); Hemoglobin 12.4 g/dl (14.0-18.0); Mean Corpuscular Hemoglobin 33.3 pg (25.0-34.0); Mean Corpuscular Hgb Conc 34.8 g/dL (32.0-36.0); Mean Corpuscular Volume 95.7 fL (80.0-100.0); Mean Platelet Volume 10.1 fL (9.4-12.4); Platelet Count 149 K/uL (130-400); RDW Coefficient of Variation 12.5 % (11.5-14.5); RDW Standard Deviation 44.2 fL (36.4-46.3); Red Blood Count 3.72 M/uL (4.70-6.10); White Blood Count 13.52 K/ul (4.8-10.8)
[2024-10-25 06:32] LABS: Calcium 8.3 mg/dl (8.6-10.3); Magnesium 1.5 mg/dl (1.7-2.4); Potassium 3.8 mmol/L (3.5-5.1)
[2024-10-25 06:38] LABS: BUN Creatinine Ratio 17.6 (10-20); Creatinine Clr Calc Pharmacy 110.4 ml/min
[2024-10-25 06:48] LABS: Basophils # (auto) 0.03 K/uL (0.00-0.20); Basophils % (auto) 0.2 %; Immature Granulocytes # (auto) 0.06 K/uL (0.01-0.20); Immature Granulocytes % (auto) 0.4 %; Lymphocytes # (auto) 0.36 K/uL (1.20-3.40); Lymphocytes % (auto) 2.7 %; Monocytes # (auto) 0.58 K/uL (0.11-0.59); Monocytes % (auto) 4.3 %; Neutrophils # (auto) 12.49 K/uL (1.40-6.50); Neutrophils % (auto) 92.4 %
--- NOTE | 2024-10-25 08:18 | Electrocardiogram Report ---
Test Reason : Blood Pressure : */* mmHG Vent. Rate : 113 BPM Atrial Rate : 113 BPM P-R Int : 162 ms QRS Dur : 90 ms QT Int : 328 ms P-R-T Axes : 58 24 57 degrees QTcB Int : 449 ms Poor data quality, interpretation may be adversely affected Sinus tachycardia Left atrial enlargement Atypical RBBB pattern, consider Brugada Abnormal ECG When compared with ECG of 18-Sep-2022 11:21, No significant change was found Confirmed by Geovanny Mancuso ([id number]) on 10/25/2024 8:17:49 AM Referred By: REFERRED SELF Confirmed By: Geovanny Mancuso
[2024-10-25] MEDS: MAGNESIUM SULFATE / D5W 1 GM/100 ML BAG IV SCH (09:01)
--- NOTE | 2024-10-25 17:56 | Hospitalist Progress Note ---
Date of Service October 25, 2024 Assessment & Plan (1) Sepsis: Plan: Vital signs stable Afebrile Urinary source Ying catheter inserted CT abdomen pelvis with evidence of cystitis and no other abnormal findings (2) UTI (urinary tract infection): Plan: patient's brother stated that he noticed 2 occurrences of blood in toilet - unclear of etiology urine vs bowel Bloody discharge from penis and history of ureteral irritation from chronic masturbation patient complaining of abdominal pain and nausea (similar to previous with urosepsis) CTAP showing no evidence of acute GI hemorrhage, no diverticulitis, but cystitis - Hemoccult negative and BUN WNL - likely not GI bleed - hemoglobin stable, 14.2 SIRS criteria: - Leukocytosis with neutrophil predominance (WBC 13.39) - Tachycardic (Hr 126) and hypotensive (94/57) Fluids: Sepsis fluid bolus for ideal body weight = 2100 - NSS 2250 mL bolus in ED (No LR given critical IV shortage) - lift N.p.o. and DC Protonix as likely no GI bleed - UA ordered - lactate 2.0 - blood cultures ordered and pending -Day #2 Rocephin -patient tolerating well - previous cultures grew love-sensitive Citrobacter koseri - Rocephin and cefepime during previous admissions with no allergic reactions (allergy to Penicillin) (3) Decreased urine output: Plan: Suspect possibly due to obstruction with clot vs poor hydration with NPO last urinary output 1230 - bladder scan ordered - 238 mL - bladder scan and straight cath prn overnight Ying catheter inserted this afternoon. No difficulty. Good urinary output. No evidence of bleeding or clots. No blood around catheter (4) Cognitive developmental delay: Plan: - essentially nonverbal, can respond yes or no - under care of brothers and [id number] at home - Wheelchair at baseline - requires assistance - family denies change in weakness or ambulation - fall and aspiration precautions Brother updated by phone today (5) Prediabetes: Plan: history prediabetes diet controlled glucose 184 on admission - suspect elevated due to acute infection - Most recent A1C 5.9 (08/2024) - will add loose SSI with target BSG range 110-180mg/dL, CF 45 - BSG ACHS Plan VTE ppx: SCDs; defer pharmacologic therapy as bleeding. If no further bleeding, consider heparin subcu tomorrow Diet: Clears - can advance to regular once confirm no ongoing GI bleeding and bowel movement here Code status: DNR/DNI Dispo: Med/tele given sepsis and hypotensive Admission and Anticipated Discharge Date Admission Date: October 24, 2024 Supervising Physician Co-Signing Physician Notes chart reviewed and case d/w E Donya PAC, as above Subjective Attending: Dr. Rader Patient is doing very well. He has no acute complaints other than some mild abdominal pain. He communicates this by pointing to his stomach and saying "hurt". No further bleeding. Ying catheter inserted with no evidence of blood or clotting. No fever. Vital signs stable. Discussion with patient's brother New with update this afternoon. He is a prime contact and can be reached on his home phone Review of Systems 2 Review of Systems: Unobtainable due to cognitive status Physical Exam 2 Physical Exam: GENERAL : No acute distress EYES: No icterus, gaze conjugate NOSE: No evidence of epistaxis MOUTH: No lesions or candidiasis NECK: Supple LUNGS: CTA B/L, no wheezes, rales or rhonchi HEART: Regular, rate controlled ABDOMEN: Soft, NT, ND, BS Present EXTREMITIES: No LE edema, pedal pulses intact NEURO: Awake and alert. Nonverbal. Moves all extremities without evidence of pain. Pupils equal round and reactive to light. Cooperative with examination. Results & Data Results & Data Vital Signs (Past 12 Hours) Vital Signs Temp Pulse Pulse Pulse Resp BP Pulse Ox 10/25/24 16:25 86 10/25/24 15:26 94 H 10/25/24 15:15 101 H 10/25/24 14:56 37.0 C 97 H 16 106/65 93 10/25/24 11:45 36.7 C 86 16 104/64 93 10/25/24 08:05 36.5 C 86 14 102/64 92 10/25/24 08:00 36.5 C 86 14 102/64 92 10/25/24 08:00 10/25/24 07:00 99 H O2 Del Method 10/25/24 16:25 10/25/24 15:26 10/25/24 15:15 10/25/24 14:56 Room Air 10/25/24 11:45 Room Air 10/25/24 08:05 Room Air 10/25/24 08:00 Room Air 10/25/24 08:00 Room Air 10/25/24 07:00 Laboratory Results 10/25/24 05:24 10/25/24 05:24 Diagnostic Findings Abdomen/Pelvis CTA 10/24/24 14:37 EXAM: CT Angiography Abdomen and Pelvis With Intravenous Contrast INDICATION: Rectal bleeding. TECHNIQUE: Axial computed tomographic angiography images of the abdomen and pelvis with intravenous contrast. Sagittal and coronal reformatted images were created and reviewed. This CT exam was performed using one or more of the following dose reduction techniques: automated exposure control, adjustment of the mA and/or kV according to patient size, and/or use of iterative reconstruction technique. MIP reconstructed images were created and reviewed. CONTRAST: 116ml of Optiray 320 was administered intravenously. COMPARISON: 09/18/2022 FINDINGS: VASCULATURE: Aorta: Atherosclerotic calcification of the aorta and branches. No aneurysm. Celiac trunk and mesenteric arteries: No acute change noted. No occlusion or significant stenosis. Renal arteries: No acute change noted. No occlusion or significant stenosis. Iliac arteries: No acute change noted. No occlusion or significant stenosis. Lung bases: Atelectasis noted in the lung bases. Heart: Cardiomegaly. ABDOMEN: Liver: Normal size and contour. Hypodense typical of steatosis. No mass or ductal dilation. Gallbladder and bile ducts: Multiple gallstones present. Stable prominent wall thickness. No ductal dilatation or stone. No biliary gas. Pancreas: No abnormality noted. No ductal dilation. No mass. Spleen: No abnormality noted. No splenomegaly. Adrenals: No abnormality noted. No mass. Kidneys and ureters: No abnormality noted. No hydronephrosis. No solid mass. Stomach and bowel: Scattered stool and gas throughout the redundant colon. No intraluminal hyperdensity to suggest acute hemorrhage. No obstruction. No mucosal thickening. PELVIS: Appendix: Well seen and appears normal. Bladder: Urinary bladder is incompletely distended and appears inflamed. No gas or stone. Reproductive: Mild prominent prostate is unchanged. ABDOMEN and PELVIS: Intraperitoneal space: No abnormality noted. No significant fluid collection. No free air. Bones/joints: Degenerative changes noted throughout the spine. No acute osseous abnormality seen. Soft tissues: No abnormality noted. Lymph nodes: No abnormality noted. No enlarged lymph nodes. IMPRESSION: 1. Cystitis. Correlate with urinalysis. 2. No CT evidence of acute gastrointestinal hemorrhage. 3. Cholelithiasis. 4. Hepatic steatosis. ACT 112: Negative or not required by law. Electronically signed by Reva Block 10-24-2024 3:20 PM PG Care Time/CCT Total # of Minutes Spent Total Time Spent with Patient: Total time spent is greater than 50% in coordination of care (as documented) at patient's floor/unit and/or counseling patient: 35 minutes including discussion with brother by phone Coding Level of Care Code 04206 SUB INP/OBS CARE 2/35MIN Diagnoses Sepsis A41.9 UTI (urinary tract infection) N39.0 Decreased urine output R34 Cognitive developmental delay F81.9 Prediabetes R73.03 Time Spent (min) 35
[2024-10-26 06:32] LABS: Basophils # (auto) 0.01 K/uL (0.00-0.20); Basophils % (auto) 0.1 %; Eosinophils # (auto) 0.04 K/uL (0.00-0.50); Eosinophils % (auto) 0.6 %; Hematocrit (blood only) 37.6 % (42.0-52.0); Hemoglobin 12.9 g/dl (14.0-18.0); Immature Granulocytes # (auto) 0.05 K/uL (0.01-0.20); Immature Granulocytes % (auto) 0.7 %; Lymphocytes # (auto) 0.63 K/uL (1.20-3.40); Lymphocytes % (auto) 8.9 %; Mean Corpuscular Hemoglobin 33.1 pg (25.0-34.0); Mean Corpuscular Hgb Conc 34.3 g/dL (32.0-36.0); Mean Corpuscular Volume 96.4 fL (80.0-100.0); Monocytes # (auto) 0.58 K/uL (0.11-0.59); Monocytes % (auto) 8.2 %; Neutrophils # (auto) 5.75 K/uL (1.40-6.50); Neutrophils % (auto) 81.5 %; Platelet Count 141 K/uL (130-400); RDW Coefficient of Variation 12.4 % (11.5-14.5); RDW Standard Deviation 43.9 fL (36.4-46.3); White Blood Count 7.06 K/ul (4.8-10.8)
[2024-10-26 06:50] LABS: BUN Creatinine Ratio 11.3 (10-20); Calcium 8.5 mg/dl (8.6-10.3); Creatinine Clr Calc Pharmacy 105.7 ml/min; Magnesium 1.8 mg/dl (1.7-2.4); Potassium 3.3 mmol/L (3.5-5.1)
--- NOTE | 2024-10-26 16:09 | Hospitalist Progress Note ---
Date of Service October 26, 2024 Assessment & Plan (1) Sepsis: Plan: Vital signs stable Afebrile Urinary source Ying catheter inserted CT abdomen pelvis with evidence of cystitis and no other abnormal findings (2) UTI (urinary tract infection): Plan: patient's brother stated that he noticed 2 occurrences of blood in toilet - unclear of etiology urine vs bowel Bloody discharge from penis and history of ureteral irritation from chronic masturbation patient complaining of abdominal pain and nausea (similar to previous with urosepsis) CTAP showing no evidence of acute GI hemorrhage, no diverticulitis, but cystitis - Hemoccult negative and BUN WNL - likely not GI bleed - hemoglobin stable, 14.2 SIRS criteria: - Leukocytosis with neutrophil predominance (WBC 13.39) - Tachycardic (Hr 126) and hypotensive (94/57) Fluids: Sepsis fluid bolus for ideal body weight = 2100 - NSS 2250 mL bolus in ED (No LR given critical IV shortage) - lift N.p.o. and DC Protonix as likely no GI bleed - UA ordered - lactate 2.0 - blood cultures: negative(preliminary) and pending -Day #3 Rocephin -patient tolerating well - previous cultures grew love-sensitive Citrobacter koseri - Rocephin and cefepime during previous admissions with no allergic reactions (allergy to Penicillin) (3) Decreased urine output: Plan: Suspect possibly due to obstruction with clot vs poor hydration with NPO last urinary output 1230 - bladder scan ordered - 238 mL - bladder scan and straight cath prn overnight Ying catheter placed. No difficulty. Good urinary output. No evidence of bleeding or clots. No blood around catheter. will monitor. plan to keep in and remove tomorrow AM> (4) Cognitive developmental delay: Plan: - essentially nonverbal, can respond yes or no - under care of brothers and [id number] at home - Wheelchair at baseline - requires assistance - family denies change in weakness or ambulation - fall and aspiration precautions Brother updated by phone on 10/26 (5) Prediabetes: Plan: history prediabetes diet controlled glucose 184 on admission - suspect elevated due to acute infection - Most recent A1C 5.9 (08/2024) - will add loose SSI with target BSG range 110-180mg/dL, CF 45 - BSG ACHS Plan VTE ppx: SCDs; defer pharmacologic therapy as bleeding. If no further bleeding, consider heparin subcu tomorrow Diet: Clears - can advance to regular once confirm no ongoing GI bleeding and bowel movement here Code status: DNR/DNI Dispo: Med/tele given sepsis and hypotensive Admission and Anticipated Discharge Date Admission Date: October 24, 2024 Subjective 59 yo male appears comfortable. Physical Exam Physical Exam: GENERAL : No acute distresss NECK: Supple LUNGS: CTA B/L HEART: Regular, rate controlled ABDOMEN: Soft, NT, ND, BS Present EXTREMITIES: No LE edema NEURO: Awake and alert. Nonverbal. Moves all extremities without evidence of pain. Pupils equal round and reactive to light. Cooperative with examination. Results & Data Results & Data Vital Signs (Past 12 Hours) Vital Signs Temp Pulse Pulse Resp BP Pulse Ox O2 Del Method 10/26/24 14:11 101 H 10/26/24 12:04 36.3 C L 59 L 16 115/72 94 Room Air 10/26/24 08:00 36.8 C 91 H 16 105/71 94 Room Air 10/26/24 07:25 91 H PG Care Time/CCT Total # of Minutes Spent Total Time Spent with Patient: Total time spent is greater than 50% in coordination of care (as documented) at patient's floor/unit and/or counseling patient: Coding Level of Care Code 06709 SUB INP/OBS CARE 2/35MIN Diagnoses Sepsis A41.9 UTI (urinary tract infection) N39.0 Decreased urine output R34 Cognitive developmental delay F81.9 Prediabetes R73.03
[2024-10-26] MEDS: POTASSIUM CHLORIDE CRTAB 20 MEQ TABCR PO STA (17:24)
[2024-10-26] MEDS: TAMSULOSIN HCL 0.4 MG CAP PO SCH (20:47)
[2024-10-27] MEDS ORDERED: POTASSIUM CHLORIDE / WTR 10 MEQ/100 ML PLCT IV SCH (01:30)
[2024-10-27] MEDS: MAGNESIUM SULFATE / D5W 1 GM/100 ML BAG IV ONE (02:11)
[2024-10-27] MEDS: POTASSIUM CHLORIDE CRTAB 20 MEQ TABCR PO ONE (02:11)
[2024-10-27 07:34] LABS: Basophils # (auto) 0.02 K/uL (0.00-0.20); Basophils % (auto) 0.3 %; Eosinophils # (auto) 0.08 K/uL (0.00-0.50); Eosinophils % (auto) 1.3 %; Hematocrit (blood only) 35.7 % (42.0-52.0); Hemoglobin 12.2 g/dl (14.0-18.0); Immature Granulocytes # (auto) 0.03 K/uL (0.01-0.20); Immature Granulocytes % (auto) 0.5 %; Lymphocytes # (auto) 0.94 K/uL (1.20-3.40); Lymphocytes % (auto) 15.2 %; Mean Corpuscular Hemoglobin 32.6 pg (25.0-34.0); Mean Corpuscular Hgb Conc 34.2 g/dL (32.0-36.0); Mean Corpuscular Volume 95.5 fL (80.0-100.0); Mean Platelet Volume 10.2 fL (9.4-12.4); Monocytes # (auto) 0.58 K/uL (0.11-0.59); Monocytes % (auto) 9.4 %; Neutrophils # (auto) 4.54 K/uL (1.40-6.50); Neutrophils % (auto) 73.3 %; Platelet Count 147 K/uL (130-400); RDW Coefficient of Variation 12.1 % (11.5-14.5); RDW Standard Deviation 42.5 fL (36.4-46.3); Red Blood Count 3.74 M/uL (4.70-6.10); White Blood Count 6.19 K/ul (4.8-10.8)
[2024-10-27 07:53] LABS: BUN Creatinine Ratio 10.3 (10-20); Calcium 8.4 mg/dl (8.6-10.3); Creatinine Clr Calc Pharmacy 129.4 ml/min; Magnesium 1.9 mg/dl (1.7-2.4)
--- NOTE | 2024-10-27 08:32 | Electrocardiogram Report ---
Test Reason : Blood Pressure : */* mmHG Vent. Rate : 79 BPM Atrial Rate : 79 BPM P-R Int : 170 ms QRS Dur : 98 ms QT Int : 372 ms P-R-T Axes : 56 21 47 degrees QTcB Int : 426 ms Normal sinus rhythm Normal ECG When compared with ECG of 24-Oct-2024 14:20, No significant change was found Confirmed by Geovanny Mancuso ([id number]) on 10/27/2024 8:32:44 AM Referred By: REFERRED SELF Confirmed By: Geovanny Mancuso
[2024-10-27 11:55] VITALS: BP 145/63; RESP 20; TEMP 97.7; O2SAT 96
[2024-10-27 16:20] VITALS: PULSE 86
--- NOTE | 2024-10-27 17:38 | XCELERA ---
[id number]
[2024-10-28] MEDS ORDERED: ADVANCED PROBIOTIC 625 MG CAPSULE PO SCH (09:00)
--- NOTE | 2024-10-28 09:48 | Coding Query ---
SEPSIS To promote full compliance with coding requirements relating to patient care, physician participation is requested in all cases of applications engineer uncertainty. Please assist us with the question(s) below: In responding to this query, please exercise your independent professional judgement. The fact that a question is asked does not imply that any particular answer is desired or expected. We appreciate your clarification on this issue. Throughout the medical record, you have clearly documented a localized infection and your patient has clinical evidence of a generalized sepsis or severe sepsis. The term urosepsis is a nonspecific entity and is coded as an UTI. If the patient has sepsis, severe sepsis, from an urinary source or some other source, please clarify in your response below. The medical record reflects the following clinical findings: (With dates as appropriate) (Body temperature of >38.3 C(101 F) or <36 C(96.8F), pulse >90/minute, respirations >20/minute, WBC count >12,000 or <4,000, altered mental status, significant edema or positive fluid balance, hyperglycemia without diabetes, hypotension, metabolic acidosis (elev. lactate level, anion gap or reduced blood pH), shock, positive blood culture (enter organism) ____ ( ) Sepsis Specify Organism Specify Associated Condition/Diagnosis ( ) Present on Admission ( ) Not present on admission ( ) Unable to clinically determine ( ) Severe Sepsis (Sepsis associated with acute organ dysfunction) Specify Organism Specify Associated Condition/Diagnosis ( ) Present on Admission ( ) Not present on admission ( ) Unable to clinically determine ( ) Septic Shock (Severe sepsis with acute circulatory failure, unexplained by other causes) ( X) Present on Admission ( ) Not present on admission ( ) Unable to clinically determine ( ) Other, patient has: MTDD
--- NOTE | 2024-11-01 20:51 | Discharge Summary ---
Discharge Summary Date of Service October 27, 2024 Principal Dx & Hospital Course #1 = Principal Diagnosis (1) Sepsis: Vital signs stable Afebrile Urinary source Bonilla catheter inserted CT abdomen pelvis with evidence of cystitis and no other abnormal findings (2) UTI (urinary tract infection): patient's brother stated that he noticed 2 occurrences of blood in toilet - unclear of etiology urine vs bowel Bloody discharge from penis and history of ureteral irritation from chronic masturbation patient complaining of abdominal pain and nausea (similar to previous with urosepsis) CTAP showing no evidence of acute GI hemorrhage, no diverticulitis, but cystitis - Hemoccult negative and BUN WNL - likely not GI bleed - hemoglobin stable, 14.2 SIRS criteria: - Leukocytosis with neutrophil predominance (WBC 13.39) - Tachycardic (Hr 126) and hypotensive (94/57) Fluids: Sepsis fluid bolus for ideal body weight = 2100 - NSS 2250 mL bolus in ED (No LR given critical IV shortage) - blood cultures: negative -completed course: initially with treated rocephin, will complete with cefpodoxime. - previous cultures grew love-sensitive Citrobacter koseri \ Patient had urinary retention and required bonilla. Will discharge on tamsulosin. (3) Decreased urine output: Suspect possibly due to obstruction with clot vs poor hydration with NPO last urinary output 1230 - bladder scan ordered - 238 mL - bladder scan and straight cath prn overnight Bonilla catheter placed. No difficulty. Good urinary output. No evidence of bleeding or clots. No blood around catheter. removed prior to discharge. Patient able to void. (4) Cognitive developmental delay: - essentially nonverbal, can respond yes or no - under care of brothers and [id number] at home - Wheelchair at baseline - requires assistance - family denies change in weakness or ambulation - fall and aspiration precautions (5) Prediabetes: history prediabetes diet controlled glucose 184 on admission - suspect elevated due to acute infection - Most recent A1C 5.9 (08/2024) Plan Admission HPI Per Admitting Provider Patient is a 59-year-old male with an intellectual disability making him nonverbal, past history of prediabetes, vitamin D deficiency, hyperlipidemia. He does not take any medications at home. The patient's brother was at bedside and provided the following history. He noticed at 11 AM and 1230 pm today that the patient had bright red blood in his depends and in the toilet. He originally thought it was bleeding from the rectum because of the large amount of blood that was present, although after further thought and evaluation, believes it may have come from the urine. He stated that the patient has irritation and dried blood around the tip of his penis. The patient was able to say that he does have stomach pain and nausea. The patient's brother also noted that he has had a decreased appetite today. The patient does have a history of urosepsis, in which he had stomach cramps, hematuria, and nausea before. The patient's brother also noted that he drinks a lot of green tea which they contribute to UTIs, he has been drinking more green tea than normal. The patient is under the care of of his brothers and [id number]; the patient's brother lives next door. He uses a wheelchair at baseline and needs assistance to transfer. Discharge Exam GENERAL : No acute distresss NECK: Supple LUNGS: CTA B/L HEART: Regular, rate controlled ABDOMEN: Soft, NT, ND, BS Present EXTREMITIES: No LE edema NEURO: Awake and alert. Nonverbal. Moves all extremities without evidence of pain. Pupils equal round and reactive to light. Cooperative with examination. Discharge Plan Discharge Items Patient Disposition: Home - Self-Care Reason For Visit: SEPSIS, UTI Discharge Diagnosis: sepsis Activity: Resume your previous activity Non-emergency contact: Primary Care Provider Call non-emergency contact if: you have any medication questions Follow-up/Referrals: Renato Curiel MD [Primary Care Provider] - 11/04/24 11:00 am (Scheduled with Jenny Bellamy on 11/04/24 at 11:00 am) Diet: Regular Diet Texture: Pureed (blended smooth) Addtl Attending Provider Instructions: Continue antibiotics for 5 more days. Next dose would be tonight. Also take the tamsulosin to help with his urination. He tolerated the dose well. His blood pressure was fine. Recommend followup with PCP in 1-2 weeks. Pending Studies at Discharge: No Stand-Alone Forms: My [employer], Smoking Cessation Medications and DC Order Prescriptions: New tamsulosin 0.4 mg Capsule 0.4 mg PO HS Qty: 30 0RF Advanced Probiotic 625 mg (10 billion cell) Capsule 1 cap PO DAILY Qty: 7 0RF cefpodoxime 200 mg tablet 200 mg PO BID Qty: 10 0RF Rx Instructions: must administer with a meal/food First dose tonight 10/27. Take twice a day Continued (DME) Wheelchair (Manual) Device See Rx Instructions .Route Qty: 1 0RF Rx Instructions: As directed vit C-Zn gluc-herbal no.325 90-15 mg Lozenge 2 anais PO DAILY Discharge Orders: Discharge Order (Routine); Ordered 10/27/24 Ordered By: Guillermo Dias Admission Data Admit Date/Time: 10/24/24 16:43 Attending Provider: Guillermo Dias Admit Provider: Андрей Sutton Primary Care Provider: Renato Curiel Other Interventions: Discharge Summary Assessment (RN) Last Done: 10/27/24 16:19 Hospital Stay Data Consultations 10/24/24 15:30 ED Decision to Admit Stat Diagnostic Imagining Performed 10/24/24 14:37 CT angio abdomen pelvis w con Stat Pending Results Patient Have Any Pending Studies at Discharge: No Discharge Instructions Given to Patient (Per Discharging Provider) Continue antibiotics for 5 more days. Next dose would be tonight. Also take the tamsulosin to help with his urination. He tolerated the dose well. His blood pressure was fine. Recommend followup with PCP in 1-2 weeks. Total Time Total Time Spent Total Time Spent (In Minutes): 32 Coding Level of Care Code 55562 INP/OBS DISCH >30 MIN Diagnoses Sepsis A41.9 UTI (urinary tract infection) N39.0 Decreased urine output R34 Cognitive developmental delay F81.9 Prediabetes R73.03
== END 2024-10-27 16:40 | disposition home or self-care (01) | DRG 871 ==
LOC: ED 14:01 → SUATTDRO 16:43 → 2W 16:43 → 2S 10-27 02:33